=== PATIENT | female | born 1990 | race Caucasian/White ===

== ENCOUNTER 2016-07-19 22:23 | Emergency (ER) | payer MEDICAID ==
[2016-07-19 23:45] LABS: ABSOLUTE BASOPHILS # (AUTO) 0.2 10^3/uL (0.0-0.2); ABSOLUTE EOSINOPHILS # (AUTO) 0.4 10^3/uL (0.0-0.6); ABSOLUTE LYMPHOCYTES (AUTO) 3.5 10^3/uL (0.5-4.7); ABSOLUTE MONOCYTES (AUTO) 0.6 10^3/uL (0.1-1.4); ABSOLUTE NEUT (AUTO) 7.1 10^3/uL (1.7-8.2); BASOPHILS % (AUTO) 1.4 % (0-2); EOSINOPHILS % (AUTO) 3.1 % (0-6); LYMPHOCYTES % (AUTO) 29.6 % (13-45); MEAN CORPUSCULAR HEMOGLOBIN 31.2 pg (27.0-33.4); MEAN CORPUSCULAR HGB CONC 34.3 g/dL (32.0-36.0); MEAN CORPUSCULAR VOLUME 91 fl (80-97); MONOCYTES % (AUTO) 5.2 % (3-13); RED BLOOD COUNT 4.17 10^6/uL (3.72-5.28); RED CELL DISTRIBUTION WIDTH 13.5 % (11.5-14.0); SEGMENTED NEUTROPHILS % (AUTO) 60.7 % (42-78); WHITE BLOOD COUNT 11.8 10^3/uL (4.0-10.5)
[2016-07-19 23:53] LABS: APPEARANCE,URINE SLIGHTLY-CLOUDY; BILIRUBIN,URINE NEGATIVE (NEGATIVE); GLUCOSE, URINE NEGATIVE (NEGATIVE); KETONES,URINE NEGATIVE (NEGATIVE); LEUKOCYTE ESTERASE,URINE TRACE (NEGATIVE); NITRITE,URINE NEGATIVE (NEGATIVE); PROTEIN,URINE NEGATIVE (NEGATIVE); UROBILINOGEN,URINE NEGATIVE mg/dL (<2.0)
[2016-07-20 00:03] LABS: ALANINE AMINOTRANSFERASE 47 U/L (9-52); ALBUMIN 4.4 g/dL (3.5-5.0); ALKALINE PHOSPHATASE 75 U/L (38-126); ANION GAP 13 (5-19); ASPARTATE AMINO TRANSFERASE 26 U/L (14-36); BILIRUBIN,DIRECT 0.2 mg/dL (0.0-0.4); BILIRUBIN,TOTAL 0.3 mg/dL (0.2-1.3); BLOOD UREA NITROGEN 11 mg/dL (7-20); CALCIUM 10.6 mg/dL (8.4-10.2); CARBON DIOXIDE 28 mmol/L (22-30); CHLORIDE 102 mmol/L (98-107); CREATININE RESULT 0.69 mg/dL (0.52-1.25); GLUCOSE 83 mg/dL (75-110); LIPASE 78.3 U/L (23-300); SODIUM 142.9 mmol/L (137-145); TOTAL PROTEIN 7.3 g/dL (6.3-8.2)
--- NOTE | 2016-07-20 00:09 | ER Document Report ---
ED General - General Chief Complaint: Abdominal Pain Stated Complaint: STOMACH PAIN Time Seen by Provider: 07/20/16 00:02 Notes: Patient is a 26-year-old female presents for complaint of having sharp pains in her pelvic area and lower abdomen. She's had heavy periods. Sometimes having clots with her periods. periods are not regular. She says the pain has been gradually worsening over a year. She's not seeing sprayer machine about the pain. She has no vomiting. No diarrhea. No fevers. Over the last few days she's had some increase abnormal discharge. They should says she can have her pain at any time in her cycle. TRAVEL OUTSIDE OF THE [place] IN LAST 30 DAYS: No - Related Data Allergies/Adverse Reactions: No Known Allergies Allergy (Verified 06/24/14 07:16) Past Medical History - Social History Smoking Status: Unknown if Ever Smoked Frequency of alcohol use: None Drug Abuse: None Family History: Reviewed & Not Pertinent Patient has suicidal ideation: No Patient has homicidal ideation: No - Past Medical History Cardiac Medical History: Denies: Hx Coronary Artery Disease, Hx Heart Attack, Hx Hypertension Pulmonary Medical History: Denies: Hx Asthma, Hx Bronchitis, Hx COPD, Hx Pneumonia Neurological Medical History: Denies: Hx Cerebrovascular Accident, Hx Seizures Renal/ Medical History: Denies: Hx Peritoneal Dialysis Musculoskeltal Medical History: Denies Hx Arthritis, Reports Hx Musculoskeletal Trauma Psychiatric Medical History: Reports: Hx Anxiety, Hx Depression Traumatic Medical History: Reports: Hx Fractures Past Surgical History: Reports: Hx Orthopedic Surgery - right foot - Immunizations Immunizations up to date: Yes Hx Diphtheria, Pertussis, Tetanus Vaccination: Yes Review of Systems - Review of Systems Notes: My Normal Review Basic REVIEW OF SYSTEMS: CONSTITUTIONAL : Denies fever, chills, or sweats. Denies recent illness. RESPIRATORY: Denies cough, cold, or chest congestion. Denies shortness of breath, difficulty breathing, or wheezing. GASTROINTESTINAL: Lower abdominal pain. Denies nausea, vomiting, or diarrhea. Denies constipation. Last BM: GENITOURINARY: Denies difficulty urinating, painful urination, burning, frequency, or blood in urine. FEMALE GENITOURINARY: Abnormal vaginal discharge. MUSCULOSKELETAL: Denies neck or back pain or joint pain or swelling. SKIN: Denies rash or skin lesions. NEUROLOGICAL: Denies altered mental status or loss of consciousness. Denies headache. Denies weakness or paralysis or loss of use of either side. Denies problems with gait or speech. Denies sensory or motor loss. ALL OTHER SYSTEMS REVIEWED AND NEGATIVE. Physical Exam - Vital signs Vitals: Temp Pulse Resp BP Pulse Ox 98.2 F 73 18 129/67 H 98 07/19/16 23:09 07/19/16 23:09 07/19/16 23:09 07/19/16 23:09 07/19/16 23:09 - Notes Notes: General Appearance: Well nourished, alert, cooperative, no acute distress, no obvious discomfort. Well-appearing. Vitals: reviewed, See vital signs table. Head: no swelling or tenderness to the head Eyes: PERRL, EOMI, Conjuctiva clear Mouth: No decreasd moisture Lungs: No wheezing, No rales, No rhonci, No accessory muscle use, good air exchange bilaterally. Heart: Normal rate, Regular rythm, No murmur, no rub Abdomen: Normal BS, soft, No rigidity, mild lower abdominal tenderness to palpation, No guarding, no rebound, no abdominal masses, no organomegaly Pelvic exam: Normal external genitalia. Clear vaginal discharge. No blood in vaginal vault. No pain on exam. Extremities: strength 5/5 in all extremities, good pulses in all extremities, no swelling or tenderness in the extremities, no edema. Skin: warm, dry, appropriate color, no rash Neuro: speech clear, oriented x 3, normal affect, responds appropriately to questions. Course - Vital Signs Vital signs: Temp Pulse Resp BP Pulse Ox 97.7 F 67 17 115/78 99 07/20/16 02:08 07/20/16 02:57 07/20/16 02:57 07/20/16 02:57 07/20/16 02:57 - Laboratory Result Diagrams: 07/19/16 23:35 07/19/16 23:35 Laboratory results interpreted by me: 07/19/16 07/19/16 07/19/16 23:00 23:35 23:35 WBC 11.8 H Calcium 10.6 H Urine Blood MODERATE H Ur Leukocyte Esterase TRACE H - Transfer of Care Notes: 07/20/16 05:47 Patient has been having pelvic pain is now for a year. Recently there a little bit worse but she's also had some discharge. She had mostly clear discharge on exam. She does have white blood cells on wet prep. I will treat her for bacterial vaginosis. I did swab her for gonorrhea and chlamydia. If these are positive we will call her back and call her in a prescription for treatment. I will refer her to gynecology due to her chronic pelvic pain. Pain could be related to endometriosis. Patient says that the pain does occur throughout her cycle however it does seem to be worse during her menstrual periods. Patient encouraged return to ER shows fevers, worsening pain, or heavy bleeding. Patient agrees with plan will be discharged home. Dictation of this chart was performed using voice recognition software; therefore, there may be some unintended grammatical errors. Discharge - Discharge Clinical Impression: Pelvic pain, Bacterial vaginosis Condition: Good Disposition: HOME, SELF-CARE Additional Instructions: Your ultrasound did not show any concerning abnormalities. Her pain could be potentially coming from endometriosis. Please follow-up with the sprayer machine for evaluation to see what their thoughts are on the possible causes of your recurrent pelvic pain. Your vaginal swabs did show evidence of white blood cells and you did have some discharge. We will treat you for bacterial vaginosis. Your gonorrhea and chlamydia swabs are pending. If they're positive we will call you. This typically takes 1-2 days. Prescriptions: Metronidazole [Flagyl 500 mg Tablet] 500 mg PO BID #14 tablet Forms: Return to Work Referrals: CHARLEEN SWANSON MD [ACTIVE STAFF] - Follow up in 3-5 days
[2016-07-20 02:48] LABS: CHLAM PCR NOT DETECTED (NOT DETECT)
[2016-07-20 02:58] VITALS: BP 115/78
== END 2016-07-20 02:58 | disposition home or self-care (01) ==
LOC: ER 22:23
DX: N76.0 Acute vaginitis (principal); B96.89 Other specified bacterial agents as the cause of diseases classified elsewhere; R10.2 Pelvic and perineal pain; G89.29 Other chronic pain; N92.6 Irregular menstruation, unspecified
CPT/HCPCS: 36415; 76830; 80053; 81001; 83690; 85025; 87210; 87491; 87591; 93976; 99284

== ENCOUNTER 2016-08-19 15:42 | Emergency (ER) | payer MEDICAID ==
--- NOTE | 2016-08-19 17:03 | ER Document Report ---
ED Skin Rash/Insect Bite/Abscs - General Chief Complaint: Rash Stated Complaint: RASH Time Seen by Provider: 08/19/16 16:50 Mode of Arrival: Ambulatory Information source: Patient Notes: This is a 31-year-old female who presents with a dry itchy rash to her hands. She states that this hand irritation has been present for about 6 months. She does not have a physician and so she has not sought medical care for this issue. TRAVEL OUTSIDE OF THE [place] IN LAST 30 DAYS: No - Related Data Allergies/Adverse Reactions: No Known Allergies Allergy (Verified 08/19/16 15:44) Past Medical History - General Information source: Patient, [facility] Records - Social History Smoking Status: Unknown if Ever Smoked Family History: Reviewed & Not Pertinent Patient has suicidal ideation: No Patient has homicidal ideation: No - Past Medical History Cardiac Medical History: Denies: Hx Coronary Artery Disease, Hx Heart Attack, Hx Hypertension Pulmonary Medical History: Denies: Hx Asthma, Hx Bronchitis, Hx COPD, Hx Pneumonia Neurological Medical History: Denies: Hx Cerebrovascular Accident, Hx Seizures Renal/ Medical History: Denies: Hx Peritoneal Dialysis Musculoskeltal Medical History: Denies Hx Arthritis, Reports Hx Musculoskeletal Trauma Psychiatric Medical History: Reports: Hx Anxiety, Hx Depression Traumatic Medical History: Reports: Hx Fractures Past Surgical History: Reports: Hx Orthopedic Surgery - right foot - Immunizations Immunizations up to date: Yes Hx Diphtheria, Pertussis, Tetanus Vaccination: Yes Review of Systems - Review of Systems Constitutional: No symptoms reported. denies: Chills, Fever EENT: No symptoms reported Cardiovascular: No symptoms reported Respiratory: No symptoms reported Gastrointestinal: No symptoms reported Musculoskeletal: No symptoms reported Skin: See HPI Hematologic/Lymphatic: No symptoms reported Neurological/Psychological: No symptoms reported Physical Exam - Vital signs Vitals: Temp Pulse Resp BP Pulse Ox 97.5 F 114 H 20 132/74 H 98 08/19/16 15:44 08/19/16 15:44 08/19/16 15:44 08/19/16 15:44 08/19/16 15:44 - General General appearance: Appears well In distress: None - HEENT Head: Normocephalic, Atraumatic Eyes: Normal - Cardiovascular Rhythm: Regular Heart sounds: Normal auscultation, S1 appreciated, S2 appreciated - Skin Skin Temperature: Warm Skin Moisture: Dry Notes: dry, scaly skin to bilateral palms fingers/web spaces. Consistent with hand eczema/dermatitis. No maculopapular lesions. Cap refill intact. Sensation intact. FROM to digits. Course - Vital Signs Vital signs: Temp Pulse Resp BP Pulse Ox 97.5 F 114 H 20 132/74 H 98 08/19/16 15:44 08/19/16 15:44 08/19/16 15:44 08/19/16 15:44 08/19/16 15:44 Discharge - Discharge Clinical Impression: Hand eczema Condition: Stable Disposition: HOME, SELF-CARE Additional Instructions: Your rash is consistent with hand eczema. Avoid alcohol based soaps or hand sanitizers. Use topical steroid cream as prescribed. OTC benadryl can help with the itching, as discussed. Follow up with PCP or [facility] as instructed Prescriptions: Triamcinolone Acetonide 15 gm TP TID #1 cream.gm.
[2016-08-19] MEDS ORDERED: DIPHENHYDRAMINE HCL 50 MG CAPSULE PO ONE (17:20)
[2016-08-19] MEDS ORDERED: PREDNISONE 20 MG TABLET PO ONE (17:20)
--- NOTE | 2016-08-19 17:20 | ER Document Report ---
ED Skin Rash/Insect Bite/Abscs - General Mode of Arrival: Ambulatory Information source: Patient TRAVEL OUTSIDE OF THE [place] IN LAST 30 DAYS: No - HPI Patient complains to provider of: Other - rash Skin Character: Other - See above <ELIAN CRESPO - Last Filed: 08/19/16 18:15> <SHELBY AVILA - Last Filed: 08/19/16 19:13> - General Chief Complaint: Rash Stated Complaint: RASH Time Seen by Provider: 08/19/16 16:50 Notes: Patient is a 26 year old female who presents to the emergency department complaining of a rash. Patient states she woke up with and rash and what look like bites on her upper arms, groin, knees, and swelling of her hands. Patient states the bites itch and that her hands are painful. Patient reports that she woke up 2 months ago with a similar rash that were itchy. (ELIAN CRESPO) - Related Data Allergies/Adverse Reactions: No Known Allergies Allergy (Verified 08/19/16 15:44) Past Medical History - General Information source: Patient - Social History Smoking Status: Unknown if Ever Smoked Family History: Reviewed & Not Pertinent Patient has suicidal ideation: No Patient has homicidal ideation: No Musculoskeltal Medical History: Reports Hx Musculoskeletal Trauma Psychiatric Medical History: Reports: Hx Anxiety, Hx Depression Traumatic Medical History: Reports: Hx Fractures Past Surgical History: Reports: Hx Orthopedic Surgery - right foot - Immunizations Immunizations up to date: Yes Hx Diphtheria, Pertussis, Tetanus Vaccination: Yes <ELIAN CRESPO - Last Filed: 08/19/16 18:15> Review of Systems - Review of Systems Constitutional: No symptoms reported EENT: No symptoms reported Cardiovascular: No symptoms reported Respiratory: No symptoms reported Gastrointestinal: No symptoms reported Genitourinary: No symptoms reported Female Genitourinary: No symptoms reported Musculoskeletal: See HPI, Other - hand swelling Skin: See HPI, Rash Hematologic/Lymphatic: No symptoms reported Neurological/Psychological: No symptoms reported -: Yes All other systems reviewed and negative <ELIAN CRESPO - Last Filed: 08/19/16 18:15> Physical Exam - Vital signs Interpretation: Tachycardic - General General appearance: Appears well, Alert - HEENT Head: Normocephalic, Atraumatic Eyes: Normal Pupils: PERRL - Respiratory Respiratory status: No respiratory distress Chest status: Nontender Breath sounds: Normal Chest palpation: Normal - Cardiovascular Rhythm: Regular Heart sounds: Normal auscultation Murmur: No - Abdominal Inspection: Normal Distension: No distension Bowel sounds: Normal Tenderness: Nontender Organomegaly: No organomegaly - Back Back: Normal, Nontender - Extremities General upper extremity: Normal inspection, Nontender, Normal color, Normal ROM , Normal temperature General lower extremity: Normal inspection, Nontender, Normal color, Normal ROM , Normal temperature, Normal weight bearing. No: Luisa's sign - Neurological Neuro grossly intact: Yes Cognition: Normal Orientation: AAOx4 [place] Coma Scale Eye Opening: Spontaneous [place] Coma Scale Verbal: Oriented [place] Coma Scale Motor: Obeys Commands [place] Coma Scale Total: 15 Speech: Normal Motor strength normal: LUE, RUE, LLE, RLE Sensory: Normal - Psychological Associated symptoms: Normal affect, Normal mood - Skin Skin Temperature: Warm Skin Moisture: Dry Skin Color: Normal Character of irregularity: Urticarial - bl upper and lower extremities, worse on hands <SHELBY AVILA - Last Filed: 08/19/16 19:13> - Vital signs Vitals: Temp Pulse Resp BP Pulse Ox 97.5 F 114 H 20 132/74 H 98 08/19/16 15:44 08/19/16 15:44 08/19/16 15:44 08/19/16 15:44 08/19/16 15:44 Course <ELIAN CRESPO - Last Filed: 08/19/16 18:15> <SHELBY AVILA - Last Filed: 08/19/16 19:13> - Re-evaluation Re-evalutation: 08/19/16 17:12 Is a 26-year-old female who comes in with rash that is worse on her upper extremities. Patient states that it itches. [place] the [place] Patient has urticaria. Possible sand flea bites and allergic reaction to them. Patient's symptoms are worse on her hands. Patient was asked to remove her rings because of swelling. Patient has excoriations around the areas. Symptoms are consistent with urticaria, again likely with a insect envenomation. Patient will be given prednisone and is to take Benadryl and famotidine at home. Follow-up with PMD as needed. Return if any worsening or concerning symptoms. Stable for discharge. Patient understands and agrees with plan. Grateful for care. (SHELBY AVILA) - Vital Signs Vital signs: Temp Pulse Resp BP Pulse Ox 97.2 F 80 16 127/82 H 97 08/19/16 17:39 08/19/16 17:39 08/19/16 17:39 08/19/16 17:39 08/19/16 17:39 Discharge <ELIAN CRESPO - Last Filed: 08/19/16 18:15> <SHELBY AVILA - Last Filed: 08/19/16 19:13> - Discharge Clinical Impression: Urticaria Condition: Stable Disposition: HOME, SELF-CARE Instructions: Acute Urticaria ([facility]) Prescriptions: Cetirizine HCl [Zyrtec 10 mg Tablet] 1 tab PO DAILY #30 tablet Prednisone 40 mg PO DAILY #6 tablet Scribe Attestation: 08/19/16 19:13 I personally performed the services described in the documentation, reviewed and edited the documentation which was dictated to the scribe in my presence, and it accurately records my words and actions. (SHELBY AVILA)
[2016-08-19 17:39] VITALS: BP 127/82
== END 2016-08-19 17:40 | disposition home or self-care (01) ==
LOC: ER 15:42
DX: L50.9 Urticaria, unspecified (principal)
CPT/HCPCS: 99282; J3490; J7512

== ENCOUNTER 2017-06-19 14:18 | Emergency (ER) | payer MEDICAID, OTHER ==
[2017-06-19] MEDS ORDERED: IBUPROFEN 800 MG TABLET PO ONE (15:04)
[2017-06-19] MEDS ORDERED: HYDROCODONE/ACETAMINOPHEN 5-325 MG TABLET PO ONE (15:05)
--- NOTE | 2017-06-19 15:10 | ER Document Report ---
HPI - HPI Patient complains to provider of: Right ankle pain Onset: Other - 2 months Onset/Duration: Persistent Quality of pain: Achy Pain Level: 3 Context: Patient presents complaining of right ankle pain for the past 2 months that has worsened recently. Patient states she did fracture the ankle in 2007. Patient states she has noticed that she has been limping more recently. Patient denies any new injury. Associated Symptoms: Other - Right ankle pain. denies: Fever Exacerbated by: Standing, Movement, Walking Relieved by: Denies Similar symptoms previously: Yes Recently seen / treated by doctor: No - ROS ROS below otherwise negative: Yes Systems Reviewed and Negative: Yes All other systems reviewed and negative - CONSTITUTIONAL Constitutional: DENIES: Fever - REPRODUCTIVE Reproductive: DENIES: : - MUSCULOSKELETAL Musculoskeletal: REPORTS: Extremity pain, Swelling - DERM Skin Color: Normal Skin Problems: None Past Medical History - General Information source: Patient - Social History Smoking Status: Current Every Day Smoker Smoking Education Provided: Yes Frequency of alcohol use: Occasional Drug Abuse: None Occupation: [employer] Family History: Reviewed & Not Pertinent - Medical History Medical History: Negative Neurological Medical History: Denies: Hx Cerebrovascular Accident, Hx Seizures Renal/ Medical History: Denies: Hx Peritoneal Dialysis Musculoskeltal Medical History: Denies Hx Arthritis, Reports Hx Musculoskeletal Trauma Psychiatric Medical History: Reports: Hx Anxiety, Hx Depression Traumatic Medical History: Reports: Hx Fractures Past Surgical History: Reports: Hx Orthopedic Surgery - right foot - Immunizations Immunizations up to date: Yes Hx Diphtheria, Pertussis, Tetanus Vaccination: Yes Vertical Provider Document - CONSTITUTIONAL Agree With Documented VS: Yes Exam Limitations: No Limitations General Appearance: WD/WN, No Apparent Distress - INFECTION CONTROL TRAVEL OUTSIDE OF THE [place] IN LAST 30 DAYS: No - HEENT HEENT: Atraumatic, Normocephalic - NECK Neck: Normal Inspection - RESPIRATORY Respiratory: No Respiratory Distress - CARDIOVASCULAR Pulses: Normal: Dorsalis pedis - MUSCULOSKELETAL/EXTREMETIES Musculoskeletal/Extremeties: MAEW, Tender - right ankle tenderness to medial and posterior ankle - NEURO Level of Consciousness: Awake, Alert, Appropriate Motor/Sensory: No Motor Deficit - DERM Integumentary: Warm, Dry, No Rash Course - Vital Signs Vital signs: Temp Pulse Resp BP Pulse Ox 98.0 F 71 20 131/74 H 98 06/19/17 14:39 06/19/17 14:39 06/19/17 14:39 06/19/17 14:39 06/19/17 14:39 - Diagnostic Test Radiology reviewed: Image reviewed, Reports reviewed Procedures - Immobilization Right Ankle Pre-Proc Neuro Vasc Exam: Normal Immobilizer type: Ankle stirrup Performed by: PCT Post-Proc Neuro Vasc Exam: Normal Alignment checked and good: Yes Discharge - Discharge Clinical Impression: Right ankle pain Qualifiers: Chronicity: unspecified Qualified Code(s): M25.571 - Pain in right ankle and joints of right foot Arthritic-like pain Qualifiers: Joint pain location: ankle Laterality: right Qualified Code(s): M25.571 - Pain in right ankle and joints of right foot Condition: Stable Disposition: HOME, SELF-CARE Instructions: Ankle Stirrup Splint ([facility]), Anti-Inflammatory Medication ([facility]), Arthritis ([facility]), Use of Crutches ([facility]) Additional Instructions: Return immediately for any new or worsening symptoms Followup with your primary care provider, call tomorrow to make a followup appointment Follow-up with tax specialist for further evaluation, weightbearing as tolerated Prescriptions: Naproxen [Naprosyn 250 Nmg Tablet] 1 tab PO BID #14 tablet Tramadol HCl [Ultram 50 mg Tablet] 50 mg PO ASDIR PRN #12 tablet PRN Reason: Forms: Smoking Cessation Education, Return to Work Referrals: SHANNON SANCHEZ MD [Primary Care Provider] - Follow up as needed [facility] [Provider [facility]] - Follow up in 3-5 days
--- NOTE | 2017-06-19 15:20 | RADIOLOGY REPORT (SQ) ---
EXAM DESCRIPTION: ANKLE RIGHT COMPLETE COMPLETED DATE/TIME: 06/19/2017 3:05 pm REASON FOR STUDY: pain, prev surgery COMPARISON: Right foot three views 05/31/2013 NUMBER OF VIEWS: Three views. TECHNIQUE: AP, lateral, and oblique radiographic images acquired of the right ankle. LIMITATIONS: None. FINDINGS: MINERALIZATION: Normal. BONES: No acute fracture or dislocation. Old well corticated avulsion fragments off the medial malle olus. Radio surgery along the talus, with 3 screws present at the talar neck. No lucency around the hardwa re worrisome for loosening. JOINTS: No tibiotalar joint effusion. No disruption of the ankle mortise alignment. Mild bony spurr ing along the posterior aspect of the posterior subtalar joint, and at the talonavicular joint. SOFT TISSUES: No soft tissue swelling. No foreign body. OTHER: No other significant finding. IMPRESSION: No acute findings. Old surgery with screws along the talus. Old avulsion fragments medial malleolus, well corticated and chronic in appearance Bony spurring at the posterior subtalar joint and talonavicular joint TECHNICAL DOCUMENTATION: JOB ID: [id number] [employer]- All Rights Reserved Reading location - IP/workstation name: [email or web address]
[2017-06-19 16:54] VITALS: BP 115/62
== END 2017-06-19 16:56 | disposition home or self-care (01) ==
LOC: ER 14:18
DX: M25.571 Pain in right ankle and joints of right foot (principal)
CPT/HCPCS: 99283; 73610; L4350

== ENCOUNTER 2017-07-25 06:35 | Day surgery (SDC) | payer MEDICAID, OTHER ==
[2017-07-18 11:20] LABS: HEMATOCRIT 39.4 % (36.0-47.0); HEMOGLOBIN 13.9 g/dL (12.0-15.5); MEAN CORPUSCULAR HEMOGLOBIN 32.3 pg (27.0-33.4); MEAN CORPUSCULAR HGB CONC 35.2 g/dL (32.0-36.0); MEAN CORPUSCULAR VOLUME 92 fl (80-97); PLATELET COUNT 277 10^3/uL (150-450); RED BLOOD COUNT 4.29 10^6/uL (3.72-5.28); RED CELL DISTRIBUTION WIDTH 12.9 % (11.5-14.0); WHITE BLOOD COUNT 11.5 10^3/uL (4.0-10.5)
[2017-07-18 11:48] LABS: ANION GAP 11 (5-19); BLOOD UREA NITROGEN 10 mg/dL (7-20); CALCIUM 10.7 mg/dL (8.4-10.2); CARBON DIOXIDE 29 mmol/L (22-30); CHLORIDE 103 mmol/L (98-107); GLUCOSE 110 mg/dL (75-110); POTASSIUM 4.6 mmol/L (3.6-5.0); SODIUM 143.1 mmol/L (137-145)
[2017-07-18 11:51] LABS: APPEARANCE,URINE SLIGHTLY-CLOUDY; BILIRUBIN,URINE NEGATIVE (NEGATIVE); COLOR,URINE YELLOW; GLUCOSE, URINE NEGATIVE (NEGATIVE); KETONES,URINE NEGATIVE (NEGATIVE); LEUKOCYTE ESTERASE,URINE MODERATE (NEGATIVE); NITRITE,URINE NEGATIVE (NEGATIVE); PROTEIN,URINE NEGATIVE (NEGATIVE); URINE SPECIFIC GRAVITY 1.027; UROBILINOGEN,URINE NEGATIVE mg/dL (<2.0)
[~2017-07-25 06:35] MED LIST: CEFAZOLIN SODIUM 2 GM in DEXTROSE 5%-WATER 100 ML IV PRN; LACTATED RINGERS 1000 ML IV PRN; LIDOCAINE 0.5% INJ-PF (5 MG/ML) 50 ML SDV SUBCUT PRN
[2017-07-25] MEDS ORDERED: BUPIVACAINE HCL 0.5 % INJ/PF 30 ML SDV ONE (07:13)
[2017-07-25] MEDS ORDERED: MIDAZOLAM 2 MG/2 ML INJ ONE ×2 (07:46→08:10)
[2017-07-25] MEDS ORDERED: HYDROMORPHONE HCL INJ/PF 2 MG/ML AMPULE ONE (08:09)
[2017-07-25] MEDS ORDERED: FENTANYL CITRATE INJ/PF 250 MCG/5 ML AMPULE ONE (08:09)
[2017-07-25] MEDS ORDERED: ACETAMINOPHEN 100 ML IV ONE (08:10)
[2017-07-25] MEDS ORDERED: PROPOFOL INJ 200 MG/20 ML VIAL IV ONE (08:10)
[2017-07-25] MEDS ORDERED: EPHEDRINE SULFATE INJ 50 MG/1 ML AMPULE ONE (08:51)
[2017-07-25] MEDS ORDERED: MORPHINE SULFATE 10 MG/ML INJ IV PRN (08:59)
[2017-07-25] MEDS ORDERED: OXYCODONE-ACETAMINOPHEN 5-325 MG TABLET PO PRN ×2 (08:59)
[2017-07-25] MEDS ORDERED: DIPHENHYDRAMINE HCL 50 MG/ML VIAL IV PRN (08:59)
[2017-07-25] MEDS ORDERED: PROMETHAZINE HCL INJ 25 MG/1 ML VIAL IV PRN ×2 (08:59)
[2017-07-25] MEDS ORDERED: MEPERIDINE HCL/PF INJ 25 MG/1 ML DISP.SYRIN IV PRN (08:59)
[2017-07-25] MEDS ORDERED: FENTANYL CITRATE INJ/PF 100 MCG/2 ML AMPUL IV PRN ×3 (08:59)
--- NOTE | 2017-07-25 09:40 | Operative Report ---
Operative Report DATE OF SURGERY: 07/25/17 PREOPERATIVE DIAGNOSIS: Right subtalar arthritis, posttraumatic OPERATION: Right subtalar fusion. Talar neck osteoectomy SURGEON: SOLO ORTEGA ANESTHESIA: GA ESTIMATED BLOOD LOSS: Minimal PROCEDURE: With the patient in a sloppy lateral position on the operating table the right lower extremities prepped and draped in sterile fashion. Limb was elevated for exsanguination tourniquet inflated 280 torr. Using a previous approach the sinus tarsi oblique incision is made. Sharp dissection used to carry incision down to the subtalar joint. Subtalar joint is explored. Its opened using a lamina public relations analyst. The subtalar joint is decorticated using a bur. Subsequently 2 pins for a [place] 6.5 titanium screw set are placed through the calcaneus up into the talar neck. The screws are started along the pin tracts. The subtalar joint is then packed with V toss bone graft substitute. The remaining screw depth is inserted. The position and hardware placement are checked fluoroscopically. The tourniquet is then deflated. The wound is irrigated. Hemostasis obtained with electrocautery. Wound is closed in layers with interrupted Vicryl followed by nylon. Sterile compressive dressing and posterior plaster splint were applied. The patient's return to the PACU in satisfactory condition.
[2017-07-25] MEDS: FENTANYL CITRATE INJ/PF 100 MCG/2 ML AMPUL ONE ×2 (09:53→10:03)
[2017-07-25] MEDS ORDERED: OXYCODONE HCL IR 5 MG TABLET PO PRN (09:56)
[2017-07-25] MEDS ORDERED: ONDANSETRON 4 MG TAB.RAPDIS PO PRN (09:57)
[2017-07-25] MEDS ORDERED: PROMETHAZINE HCL INJ 25 MG/1 ML VIAL ONE (10:03)
[2017-07-25] MEDS: MORPHINE SULFATE 10 MG/ML INJ ONE ×2 (10:10→10:15)
[2017-07-25] MEDS ORDERED: DIPHENHYDRAMINE HCL 50 MG/ML VIAL ONE (10:48)
[2017-07-25] MEDS ORDERED: DEXAMETHASONE SOD PHOSPHATE INJ 4 MG/1 ML VIAL ONE (11:45)
[2017-07-25] MEDS ORDERED: SUCCINYLCHOLINE CHLORIDE INJ 200 MG/10 ML VIAL ONE (11:45)
[2017-07-25] MEDS ORDERED: ONDANSETRON HCL INJ/PF 4 MG/2 ML SDV ONE (11:45)
--- NOTE | 2017-07-25 12:10 | RADIOLOGY REPORT (SQ) ---
EXAM DESCRIPTION: NO CHG FLUORO; ANKLE RIGHT COMPLETE COMPLETED DATE/TIME: 07/25/2017 10:45 am REASON FOR STUDY: RT ANKLE/TALUS FUSION ASST WITH FLUOROSCOPY IN OR COMPARISON: 06/19/2017 radiographs. FINDINGS: 4 images obtained of the ankle and hindfoot show further instrumentation, screws across th e subtalar articulation. Fluoro time 0.3 minutes. TECHNICAL DOCUMENTATION: JOB ID: [id number] Reading location - IP/workstation name: [email or web address]
--- NOTE | 2017-07-25 12:10 | RADIOLOGY REPORT (SQ) ---
EXAM DESCRIPTION: NO CHG FLUORO; ANKLE RIGHT COMPLETE COMPLETED DATE/TIME: 07/25/2017 10:45 am REASON FOR STUDY: RT ANKLE/TALUS FUSION ASST WITH FLUOROSCOPY IN OR COMPARISON: 06/19/2017 radiographs. FINDINGS: 4 images obtained of the ankle and hindfoot show further instrumentation, screws across th e subtalar articulation. Fluoro time 0.3 minutes. TECHNICAL DOCUMENTATION: JOB ID: [id number] Reading location - IP/workstation name: [email or web address]
[2017-07-25 12:11] VITALS: BP 108/79
== END 2017-07-25 12:10 | disposition home or self-care (01) ==
LOC: OROUT 06:35
PROVIDERS: ATTEND Orthopaedic Surgery
DX: M19.171 Post-traumatic osteoarthritis, right ankle and foot (principal); S92.121 Displaced fracture of body of right talus; X58.XXXS Exposure to other specified factors, sequela; M25.571 Pain in right ankle and joints of right foot; F17.210 Nicotine dependence, cigarettes, uncomplicated; Z01.818 Encounter for other preprocedural examination; M79.671 Pain in right foot; E66.9 Obesity, unspecified; Z68.41 Body mass index [BMI] 40.0-44.9, adult
CPT/HCPCS: 36415; 85027; 81025; 80048; 81001; 73610; 28725; 28118; C1898; J2250; J3490 ×2; J0690; J1100; J3010 ×2; J2270; J1170; J2550; J0330; J2405; J2704; J0131; 01480; J1200

== ENCOUNTER 2017-07-31 01:37 | Emergency (ER) | payer OTHER ==
--- NOTE | 2017-07-31 03:18 | ER Document Report ---
ED General - General Chief Complaint: Leg Pain Stated Complaint: NUMBESS IN LEG Time Seen by Provider: 07/31/17 03:17 Mode of Arrival: Ambulatory Information source: Patient Notes: 27-year-old lady with past medical history of right ankle injury with associated arthritis who had right subtalar fusion by Dr. Ortega orthopedics on 25 July who presented today for evaluation of right foot numbness. Numbness localized to the right foot, no radiation, no associated calf pain. Patient denies any chest pain or shortness of breath. Patient has cast on her right foot. TRAVEL OUTSIDE OF THE [place] IN LAST 30 DAYS: No - Related Data Allergies/Adverse Reactions: No Known Allergies Allergy (Verified 07/18/17 10:19) Past Medical History - General Information source: Patient - Social History Smoking Status: Current Every Day Smoker Chew tobacco use (# tins/day): No Frequency of alcohol use: None Drug Abuse: None Family History: Reviewed & Not Pertinent Patient has suicidal ideation: No Patient has homicidal ideation: No - Past Medical History Cardiac Medical History: Denies: Hx Coronary Artery Disease, Hx Heart Attack, Hx Hypertension Pulmonary Medical History: Denies: Hx Asthma, Hx Bronchitis, Hx COPD, Hx Pneumonia Neurological Medical History: Denies: Hx Cerebrovascular Accident, Hx Seizures Renal/ Medical History: Denies: Hx Peritoneal Dialysis Musculoskeltal Medical History: Denies Hx Arthritis, Reports Hx Musculoskeletal Trauma Psychiatric Medical History: Reports: Hx Anxiety, Hx Depression Traumatic Medical History: Reports: Hx Fractures Past Surgical History: Reports: Hx Orthopedic Surgery - right foot - Immunizations Immunizations up to date: Yes Hx Diphtheria, Pertussis, Tetanus Vaccination: Yes - UNSURE WHEN Review of Systems - Review of Systems Notes: REVIEW OF SYSTEMS: CONSTITUTIONAL: -fevers, -chills EENT: -eye pain, -difficulty swallowing, -nasal congestion CARDIOVASCULAR: -chest pain, -syncope. RESPIRATORY: -cough, -SOB GASTROINTESTINAL: -abdominal pain, -nausea, -vomiting, -diarrhea GENITOURINARY: -dysuria, -hematuria MUSCULOSKELETAL: -back pain, -neck pain SKIN: -rash or skin lesions. HEMATOLOGIC: -easy bruising or bleeding. LYMPHATIC: -swollen, enlarged glands. NEUROLOGICAL: -altered mental status or loss of consciousness, -headache, + paresthesias of the foot PSYCHIATRIC: -anxiety, -depression. ALL OTHER SYSTEMS REVIEWED AND NEGATIVE. Physical Exam - Vital signs Vitals: Temp Pulse Resp BP Pulse Ox 98.9 F 116 H 20 118/65 99 07/31/17 01:44 07/31/17 01:44 07/31/17 01:44 07/31/17 01:44 07/31/17 01:44 - Notes Notes: Reviewed vital signs and nursing note as charted by RN. CONSTITUTIONAL: Alert and oriented and responds appropriately to questions HEAD: Normocephalic; atraumatic EYES: PERRL; ENT: normal NECK: Supple CARD: Regular rate and rhythm; no murmurs, no clicks, no rubs, no gallops; symmetric distal pulses RESP: Normal chest excursion without splinting or tachypnea; breath sounds clear and equal bilaterally ABD/GI: Normal bowel sounds; non-distended; soft, nontender BACK: The back appears normal and is non-tender to palpation EXT: Right foot examination after removal of the cast appears to be swollen, patient has postsurgical scar localized to the lateral aspect of the ankle, no purulence, no associated cellulitis, patient has no tenderness of the calf, her paresthesias improved after removal of the cast, DP and PT palpable, good perfusion, sensation with mild paresthesias SKIN: Normal color for age and race; warm; dry; good turgor; capillary refill < 2 seconds; no acute lesions noted NEURO: Cranial nerves 3-12 intact. Motor strength 5/5 bilaterally. Sensation intact to touch bilaterally PSYCH: The patient's mood and manner are appropriate. Grooming and personal hygiene are appropriate. Course - Re-evaluation Re-evalutation: Patient is here for evaluation of right ankle paresthesias Patient had recent surgery with still associated edema Examination did not reveal any evidence of cellulitis or purulence, surgical incision appears well Patient felt better after removal of the splint We will obtain x-rays Consult orthopedics 07/31/17 05:55 Discussed the case with orthopedic surgeon on-call, Dr. Pedro Goldstein He agreed that her numbness can be related due to neuropraxia secondary to recent surgery as well as edema Recommended splinting back into her post mold as well as sugar tong, close follow-up in clinic Given the patient has no signs of infection, no need for antibiotics at present time X-ray without any evidence of osteo-myelitis Hardware in good place No suspicion for DVT, patient has no calf pain or swelling Patient was splinted back in long leg splint as well as sugar tong Follow-up with orthopedics in clinic Patient was given strict precautions to come back if symptoms are not improving or she has worsening pain, swelling, chest pain or shortness of breath, discoloration of the foot - Vital Signs Vital signs: Temp Pulse Resp BP Pulse Ox 98.9 F 116 H 20 118/65 99 07/31/17 01:44 07/31/17 01:44 07/31/17 01:44 07/31/17 01:44 07/31/17 01:44 - Diagnostic Test Radiology reviewed: Image reviewed - Findings: Talocalcaneal screw fixation, small ossicular fragmentation of the medial malleolus consistent with old avulsive injury. Moderate lateral malleolar swelling and calcification. IMPRESSION: Moderate swelling of the right lateral malleolus. Hardware fixation. Prior injury. Dictated by: MICHAEL TARIQ MD [id number] Procedures - Immobilization Right Lower Ankle Time completed: 06:55 Pre-Proc Neuro Vasc Exam: Normal Immobilizer type: Long leg posterior, Sugar tong Performed by: Provider Post-Proc Neuro Vasc Exam: Normal Alignment checked and good: Yes Notes: 07/31/17 06:55 Postprocedure examination with pink skin, patient has intact sensation in all the dermatomes of the foot, no cyanosis Discharge - Discharge Clinical Impression: Ankle edema Neuropraxia of right lower extremity Qualifiers: Encounter type: initial encounter Qualified Code(s): S84.91XA - Injury of unspecified nerve at lower leg level, right leg, initial encounter Condition: Stable Instructions: Splint Precautions ([facility]) Additional Instructions: Please follow-up with Dr. Ortega in clinic for reassessment of the ankle Today we did not find any evidence of infection or cellulitis of the foot Please continue to use crutches, do not bear any weight on your ankle Come back if you have worsening pain, swelling of the foot, numbness or tingling , pain out of proportion, discoloration of your foot Referrals: SOLO ORTEGA MD [ACTIVE STAFF] - Follow up in 1 week
--- NOTE | 2017-07-31 06:38 | RADIOLOGY REPORT (SQ) ---
EXAM DESCRIPTION: XR ANKLE 3 VIEWS CLINICAL HISTORY: 27 years Female, pain COMPARISON: None. Findings: Talocalcaneal screw fixation, small ossicular fragmentation of the medial malleolus consistent with old avulsive injury. Moderate lateral malleolar swelling and calcification. IMPRESSION: Moderate swelling of the right lateral malleolus. Hardware fixation. Prior injury.
[2017-07-31 08:35] VITALS: BP 108/70
== END 2017-07-31 07:50 | disposition home or self-care (01) ==
LOC: ER 01:37
PROC: 2W3LX1Z Immobilization of Right Lower Extremity using Splint (ICD-10-PCS; principal; 2017-07-31)
DX: S84.91XA Injury of unspecified nerve at lower leg level, right leg, initial encounter (principal); R20.0 Anesthesia of skin; F17.200 Nicotine dependence, unspecified, uncomplicated; X58.XXXA Exposure to other specified factors, initial encounter
CPT/HCPCS: 99283

== ENCOUNTER 2017-12-13 00:11 | Emergency (ER) | payer MEDICAID, OTHER ==
[2017-12-13] MEDS ORDERED: AMPICILLIN SOD/SULBACTAM 3 GM VIAL IV ONE (00:28)
[2017-12-13] MEDS ORDERED: DEXAMETHASONE SOD PHOS INJ 10 MG/1 ML VIAL IV ONE (00:28)
[2017-12-13] MEDS ORDERED: NORMAL SALINE 1000 ML 1,000 ML IV ONE (00:28)
[2017-12-13] MEDS ORDERED: ACETAMINOPHEN 325 MG TABLET PO ONE (00:33)
--- NOTE | 2017-12-13 00:33 | ER Document Report ---
ED ENT - General Mode of Arrival: Ambulatory Information source: Patient TRAVEL OUTSIDE OF THE [place] IN LAST 30 DAYS: No - HPI Patient complains to provider of: Throat problem Onset: Yesterday Onset/Duration: Gradual Pain Level: 4 Location of pain: Throat Associated symptoms: Difficulty swallowing, Sore throat. denies: Cough Similar symptoms previously: No Recently seen / treated by doctor: No <GABY CHACKO - Last Filed: 12/13/17 00:50> <RANJIT FREEMAN - Last Filed: 12/13/17 03:19> - General Chief Complaint: Sore Throat Stated Complaint: SORE THROAT Time Seen by Provider: 12/13/17 00:24 Notes: Patient presents complaining of sore throat that started yesterday. Patient complains of difficulty swallowing. Patient denies any fever. (GABY CHACKO) - Related Data Allergies/Adverse Reactions: No Known Allergies Allergy (Verified 07/18/17 10:19) Past Medical History - General Information source: Patient - Social History Smoking Status: Current Every Day Smoker Frequency of alcohol use: Occasional Drug Abuse: None Occupation: None Family History: Reviewed & Not Pertinent Neurological Medical History: Denies: Hx Cerebrovascular Accident, Hx Seizures Renal/ Medical History: Denies: Hx Peritoneal Dialysis Musculoskeletal Medical History: Denies Hx Arthritis, Reports Hx Musculoskeletal Trauma Psychiatric Medical History: Reports: Hx Anxiety, Hx Depression Traumatic Medical History: Reports: Hx Fractures Past Surgical History: Reports: Hx Orthopedic Surgery - right foot - Immunizations Immunizations up to date: Yes Hx Diphtheria, Pertussis, Tetanus Vaccination: Yes - UNSURE WHEN <GABY CHACKO - Last Filed: 12/13/17 00:50> Review of Systems - Review of Systems Constitutional: No symptoms reported EENT: Throat pain, Difficulty swallowing Cardiovascular: No symptoms reported Respiratory: No symptoms reported. denies: Cough Gastrointestinal: No symptoms reported. denies: Vomiting Genitourinary: No symptoms reported Female Genitourinary: No symptoms reported Musculoskeletal: No symptoms reported Skin: No symptoms reported Hematologic/Lymphatic: No symptoms reported Neurological/Psychological: No symptoms reported <GABY CHACKO - Last Filed: 12/13/17 00:50> Physical Exam - General General appearance: Appears well, Alert In distress: None - HEENT Head: Normocephalic, Atraumatic Eyes: Normal Nasal: Normal Mouth/Lips: Normal Mucous membranes: Normal Pharynx: Peritonsillar abscess - right, Tonsillar hypertrophy Neck: Lymphadenopathy - Respiratory Respiratory status: No respiratory distress Chest status: Nontender Breath sounds: Normal. No: Rales, Rhonchi, Stridor, Wheezing Chest palpation: Normal - Cardiovascular Rhythm: Regular, Tachycardia Heart sounds: S1 appreciated, S2 appreciated Murmur: No - Back Back: Normal, Nontender - Extremities General upper extremity: Normal inspection, Normal ROM General lower extremity: Normal inspection, Normal ROM - Neurological Neuro grossly intact: Yes Cognition: Normal [place] Coma Scale Eye Opening: Spontaneous Any Coma Scale Verbal: Oriented Any Coma Scale Motor: Obeys Commands Any Coma Scale Total: 15 - Psychological Associated symptoms: Normal affect, Normal mood - Skin Skin Temperature: Warm Skin Moisture: Dry Skin Color: Normal <GABY CHACKO - Last Filed: 12/13/17 00:50> - Vital signs Vitals: Temp Pulse Resp BP Pulse Ox 99.1 F 109 H 20 134/69 H 98 12/13/17 00:19 12/13/17 00:19 12/13/17 00:19 12/13/17 00:19 12/13/17 00:19 Course <GABY CHACKO - Last Filed: 12/13/17 00:50> - Laboratory Result Diagrams: 12/13/17 01:00 12/13/17 01:00 <RANJIT FREEMAN - Last Filed: 12/13/17 03:19> - Re-evaluation Re-evalutation: 12/13/17 00:51 Bedside report and handoff given to Ranjit SCHAFFER (GABY CHACKO) 12/13/17 02:11 CT of the soft tissues of the neck showing findings compatible with tonsillitis with no discerned or drainable abscess noted. Anterior cervical adenopathy. Patient has leukocytosis with left shift, no bandemia. Strep test is negative. Chemistry unremarkable. On reevaluation of the patient after medications including dexamethasone patient has significant reduction in the swelling already, I can now discern exudates, airway is patent, patient now speaks without any difficulty or hoarseness, she is remarking on how much better she feels and speaks. Patient tolerating p.o. without any difficulty. Discussed treatment options and workup. I do suspect bacterial component with her white blood cell count and left shift, strep is negative, however after discussion decision was made to proceed with treatment of strep by penicillin G IM. Patient does not want to take pills for 10 days. Discussed expectations, follow-up, and return precautions in detail. Patient states satisfaction and agreement. (RANJIT FREEMAN) - Vital Signs Vital signs: Temp Pulse Resp BP Pulse Ox 98.2 F 75 16 130/74 H 98 12/13/17 02:38 12/13/17 02:38 12/13/17 02:38 12/13/17 02:38 12/13/17 02:38 - Laboratory Laboratory results interpreted by me: 12/13/17 12/13/17 01:00 01:00 WBC 18.7 H Seg Neutrophils % 82.0 H Lymphocytes % 11.2 L Absolute Neutrophils 15.3 H BUN 4 L Discharge <GABY CHACKO - Last Filed: 12/13/17 00:50> <RANJIT FREEMAN - Last Filed: 12/13/17 03:19> - Discharge Clinical Impression: Exudative pharyngitis, Cervical adenopathy Condition: Stable Disposition: HOME, SELF-CARE Additional Instructions: Your evaluation is consistent with a bacterial infection of your throat, possibly strep. Your CAT scan shows swollen lymph nodes and swollen tonsils but no drainable abscess or other concerning finding is seen at this time. You have been medicated for the swelling and infection already, drink plenty of fluids, take Tylenol or ibuprofen for pain/fever/chills. Follow-up with primary care. Return if you worsen including difficulty swallowing, difficulty breathing, spiking fever, increased pain, or any other concerning or worsening symptoms. Referrals: CEE JOHN MD [ACTIVE STAFF] - Follow up as needed
[2017-12-13] MEDS ORDERED: MORPHINE SULFATE 10 MG/ML INJ IV ONE (00:50)
[2017-12-13 01:31] LABS: ABSOLUTE BASOPHILS # (AUTO) 0.1 10^3/uL (0.0-0.2); ABSOLUTE EOSINOPHILS # (AUTO) 0.1 10^3/uL (0.0-0.6); ABSOLUTE LYMPHOCYTES (AUTO) 2.1 10^3/uL (0.5-4.7); ABSOLUTE MONOCYTES (AUTO) 1.1 10^3/uL (0.1-1.4); ABSOLUTE NEUT (AUTO) 15.3 10^3/uL (1.7-8.2); BASOPHILS % (AUTO) 0.4 % (0-2); EOSINOPHILS % (AUTO) 0.6 % (0-6); HEMATOCRIT 36.1 % (36.0-47.0); HEMOGLOBIN 12.6 g/dL (12.0-15.5); LYMPHOCYTES % (AUTO) 11.2 % (13-45); MEAN CORPUSCULAR HEMOGLOBIN 32.3 pg (27.0-33.4); MEAN CORPUSCULAR HGB CONC 34.9 g/dL (32.0-36.0); MEAN CORPUSCULAR VOLUME 93 fl (80-97); MONOCYTES % (AUTO) 5.8 % (3-13); PLATELET COUNT 205 10^3/uL (150-450); RED CELL DISTRIBUTION WIDTH 13.1 % (11.5-14.0); TOTAL CELLS COUNTED % (AUTO) 100 %; WHITE BLOOD COUNT 18.7 10^3/uL (4.0-10.5)
[2017-12-13 01:51] LABS: ANION GAP 10 (5-19); BLOOD UREA NITROGEN 4 mg/dL (7-20); CALCIUM 9.8 mg/dL (8.4-10.2); CARBON DIOXIDE 24 mmol/L (22-30); CHLORIDE 104 mmol/L (98-107); GLUCOSE 101 mg/dL (75-110); POTASSIUM 3.6 mmol/L (3.6-5.0); SODIUM 138.1 mmol/L (137-145)
--- NOTE | 2017-12-13 01:51 | RADIOLOGY REPORT (SQ) ---
EXAM DESCRIPTION: CT NECK CHEST WITH IV CONTRAST COMPLETED DATE/TME: 12/13/2017 00:30 CLINICAL HISTORY: 27 years, Female, sore throat, tonsillar swelling COMPARISON: None. TECHNIQUE: Axial CT images of the neck soft tissues obtained following the uncomplicated intravenous administration of 75 mL [address]mn[address] scanners at this facility use dose modulation, iterative reconstruction, and/or weight based dosing when appropriate to reduce radiation dose to as low as reasonably achievable (ALARA). [facility]: Dose Right [facility]: CareDose [facility]: Dose Right [facility]: Teradose 4D [facility]: Symetrica FINDINGS: No abnormalities of visualized intracranial contents. Visualized orbits and globes are unremarkable. Visualized paranasal sinuses are well aerated. Mastoid air cells are skull base is intact. Visualized lung apices are clear. No acute abnormalities of visualized cervical spine are ribs. No acute abnormalities of the buccal or meter attendant space. Visualized lung bases symmetric. Enlargement and edema of the faucial tonsils without well-defined rim-enhancing fluid collection. The visualized parapharyngeal and retropharyngeal spaces are within normal limits. Mildly prominent bilateral cervical lymph nodes are likely reactive. Visualized thyroid gland is unremarkable. No abnormalities of the epiglottis. No abnormalities of the trachea or superior mediastinum. No abnormalities of the great vessels. No abnormalities of the parotid or submandibular glands. IMPRESSION: 1. Enlargement and edema of the faucial tonsils. No well-defined rim-enhancing fluid collection. Findings compatible with tonsillitis. 2. Bilateral cervical lymphadenopathy is likely reactive. TECHNICAL DOCUMENTATION: Quality ID # 436: Final reports with documentation of one or more dose reduction techniques (e.g., Automated exposure control, adjustment of the mA and/or kV according to patient size, use of iterative reconstruction technique) 2010 [employer]- All Rights Reserved
[2017-12-13] MEDS ORDERED: HYDROCODONE/ACETAMINOPHEN 5-325 MG (6 TAB/ER DISP) PO PRN (02:06)
[2017-12-13] MEDS ORDERED: PENICILLIN G BENZATHINE 1.2 MILLION UNIT/2 ML DISP.SYRIN IM ONE (02:06)
[2017-12-13 02:39] VITALS: BP 130/74
== END 2017-12-13 02:38 | disposition home or self-care (01) ==
LOC: ER 00:11
DX: J02.9 Acute pharyngitis, unspecified (principal); R59.9 Enlarged lymph nodes, unspecified
CPT/HCPCS: 99284; 96372; 96361; 96375; 96365; 36415; 87040; 87070; 87880; 85025; 80048; 70491; J0295; J2270; J0561; J1100

== ENCOUNTER 2018-10-01 08:03 | Emergency (ER) | payer SELFPAY ==
--- NOTE | 2018-10-01 08:22 | ER Document Report ---
ED General - General Chief Complaint: Abscess Stated Complaint: POSSIBLE ABSCESS Time Seen by Provider: 10/01/18 08:20 Primary Care Provider: SHANNON SANCHEZ MD [ACTIVE STAFF] - Follow up as needed Mode of Arrival: Ambulatory Information source: Patient TRAVEL OUTSIDE OF THE [place] IN LAST 30 DAYS: No - HPI Notes: 28-year-old female presents to ED with complaints of left groin abscess that she noticed last night, states pain is 6 out of 10, throbbing and constant. Tried heat pack without relief last night. Patient is unsure of her last menstrual cycle, Cannot recall, states she is not on control. Denies any trauma to the groin. no otc meds tried. Worse with time and touching abscess. Unsure of MRSA history. denies fevers, chills, chest pain,palpitations, shortness of breath, dyspnea, nausea, vomiting, diarrhea, abdominal pain, headaches, weakness, bowel or bladder dysfunction, vaginal pain, vaginal discharge or pelvic pain, saddle anesthesia, numbness or tingling in bilateral upper or lower extremities equally, muscle paralysis, weakness in bilateral upper or lower extremities equally or rash. - Related Data Allergies/Adverse Reactions: No Known Allergies Allergy (Verified 10/01/18 08:04) Past Medical History - General Information source: Patient - Social History Smoking Status: Unknown if Ever Smoked Family History: Reviewed & Not Pertinent - Past Medical History Cardiac Medical History: Denies: Hx Coronary Artery Disease, Hx Heart Attack, Hx Hypertension Pulmonary Medical History: Denies: Hx Asthma, Hx Bronchitis, Hx COPD, Hx Pneumonia Neurological Medical History: Denies: Hx Cerebrovascular Accident, Hx Seizures Renal/ Medical History: Denies: Hx Peritoneal Dialysis Musculoskeletal Medical History: Denies Hx Arthritis, Reports Hx Musculoskeletal Trauma Psychiatric Medical History: Reports: Hx Anxiety, Hx Depression Traumatic Medical History: Reports: Hx Fractures Past Surgical History: Reports: Hx Orthopedic Surgery - right foot - Immunizations Immunizations up to date: Yes Hx Diphtheria, Pertussis, Tetanus Vaccination: Yes - UNSURE WHEN Review of Systems - Review of Systems Constitutional: No symptoms reported EENT: No symptoms reported Cardiovascular: No symptoms reported Respiratory: No symptoms reported Gastrointestinal: No symptoms reported Genitourinary: No symptoms reported Female Genitourinary: See HPI Musculoskeletal: No symptoms reported Skin: See HPI Hematologic/Lymphatic: No symptoms reported Neurological/Psychological: No symptoms reported Physical Exam - Vital signs Vitals: Temp Pulse Resp BP Pulse Ox 97.7 F 109 H 18 130/61 H 98 10/01/18 08:06 10/01/18 08:06 10/01/18 08:06 10/01/18 08:06 10/01/18 08:06 - Notes Notes: PHYSICAL EXAMINATION: GENERAL: Well-appearing, well-nourished and in no acute distress. HEAD: Atraumatic, normocephalic. ENT: Nares patent, oropharynx clear without exudates. Moist mucous membranes. NECK: Normal range of motion, supple without lymphadenopathy LUNGS: Breath sounds clear to auscultation bilaterally and equal. No wheezes rales or rhonchi. HEART: Regular rate and rhythm without murmurs ABDOMEN: Soft, nontender, nondistended abdomen. No guarding, no rebound. No masses appreciated. Female : left labial majora with erythema, induration, warmth to touch with mild fluctuance approx 1 cm x 1.5 cm, no surrounding erythema, no surrounding lymphadenopathy. Internal pelvic exam deferred Musculoskeletal: Normal range of motion, no pitting or edema. No cyanosis. NEUROLOGICAL: Cranial nerves grossly intact. Normal speech, normal gait. Normal sensory, motor exams PSYCH: Normal mood, normal affect. SKIN: Warm, Dry, normal turgor, no rashes or lesions noted. C female exam Course - Re-evaluation Re-evalutation: 10/01/18 08:31 Afebrile, slightly tachycardic however patient is in pain, nursing notes reviewed. Vitals reviewed. Patient is unsure of last menstrual cycle, urine is negative.Patient presents with symptoms most consistent with an acute cellulitis with abscess. Vitals within normal limits. Patient does not meet sepsis criteria is overall very well in appearance. Exam and history are not consistent with DVT. Patient will be started on coverage for both staph and strep. At this time will discharge with return precautions and follow-up recommendations. Verbal discharge instructions given a the bedside and opportunity for questions given. Medication warnings reviewed. Patient is in agreement with this plan and has verbalized understanding of return precautions and the need for primary care follow-up in the next 24-72 hours. - Vital Signs Vital signs: Temp Pulse Resp BP Pulse Ox 97.7 F 109 H 14 130/61 H 98 10/01/18 08:06 10/01/18 08:06 10/01/18 09:00 10/01/18 08:06 10/01/18 08:06 Procedures - Incision and Drainage Left Groin Time completed: 08:32 Type: Simple Anesthetic type: 1% Lidocaine mL's of anesthetic: 3 - mL Blade size: 11 I&D procedure: Shurclens applied Incision Method: Incision made by scalpel Amount/type of drainage: Purulent drainage approximately 7 mL Notes: 10/01/18 08:32 Verbal consent obtained. VSS. Vision was 11 blade scalpel, purulent drainage approximately 7 mL's wound culture obtained. Packed the wound with iodoform 1/4th, approximately 4 cm. Patient tolerated procedure without incident. All questions concerns answered by this provider. Showering instructs given. Discharge - Discharge Clinical Impression: Abscess of groin, left Condition: Stable Disposition: HOME, SELF-CARE Instructions: Abscess ([facility]), Post Incision and Drainage, Trimethoprim-Sulfa ([facility]) Additional Instructions: Abscess You have an abscess (boil). This a pus-forming infection, usually due to staph. Some boils may be left to drain on their own, but most require lancing. From the time the tender lump first appears, it may be three or four days before the abscess is ready to patrick. Local heat and rest help at this stage of treatment. An antibiotic may prevent spread of the infection. Once the abscess is opened, packing may be placed into it. This is done so pus is not sealed inside by premature closure of the cavity. The packing will be removed at your follow-up visit or you may be advised to remove it yourself at home. Sometimes this packing must be replaced a few times during healing. The wound will heal with surprisingly little scar. Depending on the size and location of an abscess, healing can take one to four weeks. You may shower and wash the area around the incision site two or three times a day. Antibiotics may be prescribed, but are usually not necessary after an abscess has been drained. If you develop fever, chilling, worsening pain, or increasing swelling in the area, call the doctor or return immediately. Return to the ED in the next 48 hours for wound recheck, possible repacking. Wound culture was obtained today, will call with results, he will be started on oral antibiotics, take with food to prevent any GI upset. Do not immerse herself in a body of water until wound has closed, you may wash with soap and water and rinse, do not remove packing. You experience any fevers, chills, worsening pain, any numbness or tingling, etc. return to the emergency room immediately. Return immediately for any new or worsening symptoms. Follow up with primary care provider, call tomorrow to make followup appointment. Prescriptions: Clindamycin HCl 300 mg PO Q6H #28 capsule Forms: Return to Work Referrals: ANGELY VALENTE DO [ACTIVE STAFF] - Follow up as needed ADAN CATALAN MD [COMMUNITY BASED STAFF] - Follow up as needed
[2018-10-01] MEDS ORDERED: LIDOCAINE 1% INJ-PF (10 MG/ML) 30 ML SDV INJ ONE (08:26)
[2018-10-01 09:45] VITALS: BP 136/82
== END 2018-10-01 09:51 | disposition home or self-care (01) ==
LOC: ER 08:03
DX: L02.214 Cutaneous abscess of groin (principal)
CPT/HCPCS: 99283; 87070; 87205; 81025; 10060; A6266

== ENCOUNTER 2018-11-22 09:02 | Emergency (ER) | payer SELFPAY ==
[2018-11-22 09:24] VITALS: BP 112/64
[2018-11-22] MEDS ORDERED: IBUPROFEN 800 MG TABLET PO ONE (09:43)
--- NOTE | 2018-11-22 09:44 | ER Document Report ---
HPI - HPI Patient complains to provider of: Right foot and ankle pain Time Seen by Provider: 11/22/18 09:33 Onset/Duration: Persistent Quality of pain: Achy Pain Level: 2 Context: Patient reports having orthopedic surgery on her right foot and ankle with her last surgical procedure in July of this year. Patient denies any injury but complains of right foot and ankle pain for the past 2 months. Patient is awaiting insurance to get straightened out so that she can follow back up with her surgeon. Patient complains of swelling and pain with weightbearing Associated Symptoms: Other - Right foot and ankle pain Exacerbated by: Standing, Movement, Walking Relieved by: Denies Similar symptoms previously: No Recently seen / treated by doctor: No - ROS ROS below otherwise negative: Yes Systems Reviewed and Negative: Yes All other systems reviewed and negative - CONSTITUTIONAL Constitutional: DENIES: Fever - GASTROINTESTINAL Gastrointestinal: DENIES: Nausea - REPRODUCTIVE Reproductive: DENIES: : - MUSCULOSKELETAL Musculoskeletal: REPORTS: Extremity pain, Swelling - DERM Skin Color: Normal Skin Problems: None Past Medical History - General Information source: Patient - Social History Smoking Status: Current Every Day Smoker Smoking Education Provided: Yes Frequency of alcohol use: None Drug Abuse: None Occupation: [employer] Lives with: Family Family History: Reviewed & Not Pertinent Renal/ Medical History: Denies: Hx Peritoneal Dialysis Musculoskeletal Medical History: Reports Hx Musculoskeletal Trauma Psychiatric Medical History: Reports: Hx Anxiety, Hx Depression Traumatic Medical History: Reports: Hx Fractures Past Surgical History: Reports: Hx Orthopedic Surgery - right foot - Immunizations Immunizations up to date: Yes Hx Diphtheria, Pertussis, Tetanus Vaccination: Yes - UNSURE WHEN Vertical Provider Document - CONSTITUTIONAL Agree With Documented VS: Yes Exam Limitations: No Limitations General Appearance: WD/WN, No Apparent Distress - INFECTION CONTROL TRAVEL OUTSIDE OF THE [place] IN LAST 30 DAYS: No - HEENT HEENT: Atraumatic, Normocephalic - NECK Neck: Normal Inspection - RESPIRATORY Respiratory: No Respiratory Distress - CARDIOVASCULAR Pulses: Normal: Dorsalis pedis - MUSCULOSKELETAL/EXTREMETIES Musculoskeletal/Extremeties: MAEW, FROM, Tender - Right ankle tenderness with lateral malleolar edema, right midfoot tenderness over navicular bone - NEURO Level of Consciousness: Awake, Alert, Appropriate Motor/Sensory: No Motor Deficit - DERM Integumentary: Warm, Dry, No Rash Course - Re-evaluation Re-evalutation: 11/22/18 11:10 Patient advised of radiology report findings. Patient encouraged to follow-up with her orthopedic surgeon for further evaluation. Offered immobilization. Patient states that she has a wrap she can put on her ankle and has crutches at home. Patient is requesting a note for her employer. - Vital Signs Vital signs: Temp Pulse Resp BP Pulse Ox 97.8 F 78 16 112/64 98 11/22/18 09:23 11/22/18 09:23 11/22/18 09:23 11/22/18 09:11/22/18 09:23 - Diagnostic Test Radiology reviewed: Image reviewed, Reports reviewed Discharge - Discharge Clinical Impression: Right foot pain, Hardware failure Right ankle pain Qualifiers: Chronicity: chronic Qualified Code(s): M25.571 - Pain in right ankle and joints of right foot Condition: Stable Disposition: HOME, SELF-CARE Instructions: Use of Crutches ([facility]) Additional Instructions: Return immediately for any new or worsening symptoms Followup with your primary care provider, call tomorrow to make a followup appointment Use your crutches that you have at home Follow-up with your orthopedic surgeon for further evaluation. You have x-ray findings concerning for possible hardware failure. Your doctor may need to do additional imaging such as CT scan on an outpatient basis. Prescriptions: Naproxen [Naprosyn 250 Nmg Tablet] 1 tab PO BID #14 tablet Forms: Return to Work Referrals: SOLO ORTEGA MD [ACTIVE STAFF] - Follow up as needed
--- NOTE | 2018-11-22 10:19 | RADIOLOGY REPORT (SQ) ---
EXAM DESCRIPTION: FOOT RIGHT COMPLETE; ANKLE RIGHT COMPLETE COMPLETED DATE/TIME: 11/22/2018 10:04 am REASON FOR STUDY: r foot/ankle pain, ?hardware failure COMPARISON: 05/31/2013 NUMBER OF VIEWS: Three views. TECHNIQUE: AP, lateral and oblique radiographic images acquired of the right foot and ankle. LIMITATIONS: None. FINDINGS: MINERALIZATION: Normal. BONES: There has been interval subtalar screw fusion compared to prior examination dated 2013. There is subtle lucency about the calcaneal fusion screws. There are redemonstrated screws within the lisa us unchanged from prior. JOINTS: No effusions. SOFT TISSUES: No soft tissue swelling. No foreign body. OTHER: No other significant finding. IMPRESSION: No acute fracture or dislocation of the right foot or ankle. There has been interval sub talar screw fusion compared to prior examination dated 2013. There is subtle lucency about the calca carli fusion screws, and somewhat concerning for instability or loosening. There are redemonstrated s crews within the talus unchanged from prior. Integrity of hardware and bony incorporation of fusion may be further evaluated by nonemergent CT if desired. TECHNICAL DOCUMENTATION: JOB ID: [id number] [employer]- All Rights Reserved Reading location - IP/workstation name: [email or web address]
--- NOTE | 2018-11-22 10:19 | RADIOLOGY REPORT (SQ) ---
EXAM DESCRIPTION: FOOT RIGHT COMPLETE; ANKLE RIGHT COMPLETE COMPLETED DATE/TIME: 11/22/2018 10:04 am REASON FOR STUDY: r foot/ankle pain, ?hardware failure COMPARISON: 05/31/2013 NUMBER OF VIEWS: Three views. TECHNIQUE: AP, lateral and oblique radiographic images acquired of the right foot and ankle. LIMITATIONS: None. FINDINGS: MINERALIZATION: Normal. BONES: There has been interval subtalar screw fusion compared to prior examination dated 2013. There is subtle lucency about the calcaneal fusion screws. There are redemonstrated screws within the lisa us unchanged from prior. JOINTS: No effusions. SOFT TISSUES: No soft tissue swelling. No foreign body. OTHER: No other significant finding. IMPRESSION: No acute fracture or dislocation of the right foot or ankle. There has been interval sub talar screw fusion compared to prior examination dated 2013. There is subtle lucency about the calca carli fusion screws, and somewhat concerning for instability or loosening. There are redemonstrated s crews within the talus unchanged from prior. Integrity of hardware and bony incorporation of fusion may be further evaluated by nonemergent CT if desired. TECHNICAL DOCUMENTATION: JOB ID: [id number] [employer]- All Rights Reserved Reading location - IP/workstation name: [email or web address]
== END 2018-11-22 11:22 | disposition home or self-care (01) ==
LOC: ER 09:02
DX: T85.898A Other specified complication of other internal prosthetic devices, implants and grafts, initial encounter (principal); Y83.9 Surgical procedure, unspecified as the cause of abnormal reaction of the patient, or of later complication, without mention of misadventure at the time of the procedure; M25.571 Pain in right ankle and joints of right foot; M79.671 Pain in right foot
CPT/HCPCS: 99283

== ENCOUNTER 2019-02-13 15:47 | Emergency (ER) | payer MEDICAID ==
--- NOTE | 2019-02-13 17:04 | ER Document Report ---
ED Medical Screen (RME) - General Chief Complaint: Vaginal Bleeding Stated Complaint: VAGINAL BLEEDING/ABDOMINAL PAIN Time Seen by Provider: 02/13/19 17:01 Mode of Arrival: Ambulatory TRAVEL OUTSIDE OF THE [place] IN LAST 30 DAYS: No - HPI Notes: 02/13/19 17:02 28-year-old female presents to the ED for vaginal bleeding and pelvic pain for the last 2 days. Patient states her last menstrual period was 02/06/2019. Pain is 4/10, throbbing achy. Patient states her periods have been "very heavy, passing lots of blood clots". Patient had the Ensure completed. Has not followed up with her primary care provider for this issue. Denies any fevers or chills, reports she did vomit once, no diarrhea. I have greeted and performed a rapid initial assessment of this patient. A comp rehensive ED assessment and evaluation of the patient, analysis of test results and completion of the medical decision making process will be conducted by additional ED providers. PHYSICAL EXAMINATION: GENERAL: Well-appearing, well-nourished and in no acute distress. HEAD: Atraumatic, normocephalic. EYES: Pupils equal round extraocular movements intact, conjunctiva are normal. NECK: Normal range of motion LUNGS: No respiratory distress Musculoskeletal: Normal range of motion NEUROLOGICAL: Normal speech, normal gait. PSYCH: Normal mood, normal affect. SKIN: Warm, Dry, normal turgor, no rashes or lesions noted. - Related Data Allergies/Adverse Reactions: No Known Allergies Allergy (Verified 02/13/19 17:00) Past Medical History - Social History Family history: Reviewed & Not Pertinent - Past Medical History Cardiac Medical History: Denies: Hx Coronary Artery Disease, Hx Heart Attack, Hx Hypertension Pulmonary Medical History: Denies: Hx Asthma, Hx Bronchitis, Hx COPD, Hx Pneumonia Neurological Medical History: Denies: Hx Cerebrovascular Accident, Hx Seizures Renal/ Medical History: Denies: Hx Peritoneal Dialysis Musculoskeltal Medical History: Denies Hx Arthritis, Reports Hx Musculoskeletal Trauma Psychiatric Medical History: Reports: Hx Anxiety, Hx Depression Traumatic Medical History: Reports: Hx Fractures Past Surgical History: Reports: Hx Orthopedic Surgery - right foot - Immunizations Immunizations up to date: Yes Hx Diphtheria, Pertussis, Tetanus Vaccination: Yes - UNSURE WHEN Physical Exam - Vital signs Vitals: BP 100/60 02/13/19 15:48 Course - Vital Signs Vital signs: Temp Pulse Resp BP Pulse Ox 98.4 F 68 18 139/48 H 99 02/13/19 16:04 02/13/19 16:04 02/13/19 16:04 02/13/19 16:04 02/13/19 16:04
[2019-02-13 18:22] LABS: ABSOLUTE BASOPHILS # (AUTO) 0.1 10^3/uL (0.0-0.2); ABSOLUTE EOSINOPHILS # (AUTO) 0.4 10^3/uL (0.0-0.6); ABSOLUTE LYMPHOCYTES (AUTO) 3.4 10^3/uL (0.5-4.7); ABSOLUTE MONOCYTES (AUTO) 0.6 10^3/uL (0.1-1.4); ABSOLUTE NEUT (AUTO) 6.8 10^3/uL (1.7-8.2); BASOPHILS % (AUTO) 1.1 % (0-2); EOSINOPHILS % (AUTO) 3.4 % (0-6); HEMATOCRIT 40.9 % (36.0-47.0); HEMOGLOBIN 14.1 g/dL (12.0-15.5); LYMPHOCYTES % (AUTO) 29.8 % (13-45); MEAN CORPUSCULAR HEMOGLOBIN 33.1 pg (27.0-33.4); MEAN CORPUSCULAR HGB CONC 34.4 g/dL (32.0-36.0); MEAN CORPUSCULAR VOLUME 96 fl (80-97); MONOCYTES % (AUTO) 5.6 % (3-13); PLATELET COUNT 233 10^3/uL (150-450); RED BLOOD COUNT 4.24 10^6/uL (3.72-5.28); RED CELL DISTRIBUTION WIDTH 12.9 % (11.5-14.0); SEGMENTED NEUTROPHILS % (AUTO) 60.1 % (42-78); TOTAL CELLS COUNTED % (AUTO) 100 %; WHITE BLOOD COUNT 11.3 10^3/uL (4.0-10.5)
[2019-02-13 18:41] LABS: AMORPHOUS SEDIMENT,URINE TRACE /HPF; APPEARANCE,URINE SLIGHTLY-CLOUDY; BILIRUBIN,URINE NEGATIVE (NEGATIVE); COLOR,URINE YELLOW; GLUCOSE, URINE NEGATIVE (NEGATIVE); KETONES,URINE NEGATIVE (NEGATIVE); LEUKOCYTE ESTERASE,URINE SMALL (NEGATIVE); NITRITE,URINE NEGATIVE (NEGATIVE); PROTEIN,URINE NEGATIVE (NEGATIVE); URINE SPECIFIC GRAVITY 1.021; UROBILINOGEN,URINE NEGATIVE mg/dL (<2.0)
--- NOTE | 2019-02-13 19:44 | RADIOLOGY REPORT (SQ) ---
EXAM DESCRIPTION: U/S NON OB PEL TV W/DOPPLER COMPLETED DATE/TIME: 02/13/2019 7:29 pm REASON FOR STUDY: vaginal bleeding, cramping, pelvic pain COMPARISON: 07/20/2016 TECHNIQUE: Dynamic and static grayscale images acquired of the pelvis via transvaginal approach and recorded on PACS. Additional selected color Doppler and spectral images recorded. LIMITATIONS: None. FINDINGS: UTERUS: Heterogeneous myometrium. An Essure device is present in the fundus. ENDOMETRIAL STRIPE: No focal or generalized thickening. No masses. CERVIX: 1.5 cm. No nabothian cysts. RIGHT OVARY AND DOPPLER: Normal size. No worrisome masses. Normal arterial vascular flow without evid ence for torsion. LEFT OVARY AND DOPPLER: Normal size. No worrisome masses. Normal arterial vascular flow without evide nce for torsion. 12 mm septated cyst. FREE FLUID: None noted. OTHER: No other significant finding. MEASUREMENTS: UTERUS: 7.9 x 4.8 x 5.6 cm. ENDOMETRIAL STRIPE: 6 mm. RIGHT OVARY: 3.3 x 2.3 x 2.3 cm. LEFT OVARY: 3.4 x 2.2 x 2.6 cm. IMPRESSION: The myometrium is heterogeneous, suggesting there may be some subtle fibroids. No other significant finding. TECHNICAL DOCUMENTATION: JOB ID: [id number] [employer]- All Rights Reserved Rev-07/27 Reading location - IP/workstation name: [email or web address]
--- NOTE | 2019-02-13 21:07 | ER Document Report ---
ED GI/ - General Chief Complaint: Vaginal Bleeding Stated Complaint: VAGINAL BLEEDING/ABDOMINAL PAIN Time Seen by Provider: 02/13/19 17:01 Primary Care Provider: [facility] [Provider Group] - Follow up as needed Mode of Arrival: Ambulatory Information source: Patient Notes: Otherwise healthy 28-year-old female presenting to the emergency department with concerns for vaginal bleeding. Patient reports that her period used to be regular but now she has been having bleeding for the last 2 months. She denies any syncope or lightheadedness. Denies passage of any clots. Denies any other symptoms to include nausea, vomiting, diarrhea, abdominal pain or dysuria. TRAVEL OUTSIDE OF THE [place] IN LAST 30 DAYS: No - Related Data Allergies/Adverse Reactions: No Known Allergies Allergy (Verified 02/13/19 17:00) Past Medical History - General Information source: Patient - Social History Smoking Status: Never Smoker Chew tobacco use (# tins/day): No Frequency of alcohol use: Rare Drug Abuse: None Family History: Reviewed & Not Pertinent Patient has suicidal ideation: No Patient has homicidal ideation: No - Past Medical History Cardiac Medical History: Denies: Hx Coronary Artery Disease, Hx Heart Attack, Hx Hypertension Pulmonary Medical History: Denies: Hx Asthma, Hx Bronchitis, Hx COPD, Hx Pneumonia Neurological Medical History: Denies: Hx Cerebrovascular Accident, Hx Seizures Renal/ Medical History: Denies: Hx Peritoneal Dialysis Musculoskeletal Medical History: Denies Hx Arthritis, Reports Hx Musculoskeletal Trauma Psychiatric Medical History: Reports: Hx Anxiety, Hx Depression Traumatic Medical History: Reports: Hx Fractures Past Surgical History: Reports: Hx Orthopedic Surgery - right foot - Immunizations Immunizations up to date: Yes Hx Diphtheria, Pertussis, Tetanus Vaccination: Yes - UNSURE WHEN Review of Systems - Review of Systems Constitutional: No symptoms reported EENT: No symptoms reported Cardiovascular: No symptoms reported Respiratory: No symptoms reported Gastrointestinal: No symptoms reported Genitourinary: No symptoms reported Female Genitourinary: Vaginal bleeding Musculoskeletal: No symptoms reported Skin: No symptoms reported Hematologic/Lymphatic: No symptoms reported Neurological/Psychological: No symptoms reported Physical Exam - Vital signs Vitals: BP 100/60 02/13/19 15:48 - Notes Notes: PHYSICAL EXAMINATION: GENERAL: Well-appearing, well-nourished and in no acute distress. HEAD: Atraumatic, normocephalic. EYES: Pupils equal round and reactive to light, extraocular movements intact, conjunctiva are normal. ENT: Nares patent, oropharynx clear without exudates. Moist mucous membranes. NECK: Normal range of motion, supple without lymphadenopathy LUNGS: Breath sounds clear to auscultation bilaterally and equal. No wheezes rales or rhonchi. HEART: Regular rate and rhythm without murmurs ABDOMEN: Soft, nontender, nondistended abdomen. No guarding, no rebound. No masses appreciated. Female : deferred Musculoskeletal: Normal range of motion, no pitting or edema. No cyanosis. NEUROLOGICAL: Cranial nerves grossly intact. Normal speech, normal gait. Normal sensory, motor exams PSYCH: Normal mood, normal affect. SKIN: Warm, Dry, normal turgor, no rashes or lesions noted. Course - Re-evaluation Re-evalutation: Laboratory 02/13/19 02/13/19 02/13/19 17:39 18:00 18:00 WBC 11.3 H RBC 4.24 Hgb 14.1 Hct 40.9 MCV 96 MCH 33.1 MCHC 34.4 RDW 12.9 Plt Count 233 Lymph % (Auto) 29.8 Coleman % (Auto) 5.6 Eos % (Auto) 3.4 Baso % (Auto) 1.1 Absolute Neuts (auto) 6.8 Absolute Lymphs (auto) 3.4 Absolute Monos (auto) 0.6 Absolute Eos (auto) 0.4 Absolute Basos (auto) 0.1 Seg Neutrophils % 60.1 Sodium Cancelled Potassium Cancelled Chloride Cancelled Carbon Dioxide Cancelled Anion Gap Cancelled BUN Cancelled Creatinine Cancelled Est GFR ( Amer) Cancelled Est GFR (Non-Af Amer) Cancelled Est GFR (MDRD) Non-Af Cancelled Glucose Cancelled Calcium Cancelled Total Bilirubin Cancelled Direct Bilirubin Cancelled Neonat Total Bilirubin Cancelled Neonat Direct Bilirubin Cancelled Neonat Indirect Bili Cancelled AST Cancelled ALT Cancelled Alkaline Phosphatase Cancelled Total Protein Cancelled Albumin Cancelled Lipase Cancelled EGFR Cancelled Urine Color YELLOW Urine Appearance SLIGHTLY-CLOUDY Urine pH 7.0 Ur Specific [place] 1.021 Urine Protein NEGATIVE Urine Glucose (UA) NEGATIVE Urine Ketones NEGATIVE Urine Blood MODERATE H Urine Nitrite NEGATIVE Urine Bilirubin NEGATIVE Urine Urobilinogen NEGATIVE Ur Leukocyte Esterase SMALL H Urine WBC (Auto) 4 Urine RBC (Auto) 12 Squamous Epi Cells Auto 3 Amorphous Sediment Auto TRACE Urine Mucus (Auto) RARE Urine Ascorbic Acid NEGATIVE Urine HCG, Qual NEGATIVE 02/13/19 18:00 WBC RBC Hgb Hct MCV MCH MCHC RDW Plt Count Lymph % (Auto) Coleman % (Auto) Eos % (Auto) Baso % (Auto) Absolute Neuts (auto) Absolute Lymphs (auto) Absolute Monos (auto) Absolute Eos (auto) Absolute Basos (auto) Seg Neutrophils % Sodium Cancelled Potassium Cancelled Chloride Cancelled Carbon Dioxide Cancelled Anion Gap Cancelled BUN Cancelled Creatinine Cancelled Est GFR ( Amer) Cancelled Est GFR (Non-Af Amer) Cancelled Est GFR (MDRD) Non-Af Cancelled Glucose Cancelled Calcium Cancelled Total Bilirubin Cancelled Direct Bilirubin Cancelled Neonat Total Bilirubin Cancelled Neonat Direct Bilirubin Cancelled Neonat Indirect Bili Cancelled AST Cancelled ALT Cancelled Alkaline Phosphatase Cancelled Total Protein Cancelled Albumin Cancelled Lipase Cancelled EGFR Cancelled Urine Color Urine Appearance Urine pH Ur Specific [place] Urine Protein Urine Glucose (UA) Urine Ketones Urine Blood Urine Nitrite Urine Bilirubin Urine Urobilinogen Ur Leukocyte Esterase Urine WBC (Auto) Urine RBC (Auto) Squamous Epi Cells Auto Amorphous Sediment Auto Urine Mucus (Auto) Urine Ascorbic Acid Urine HCG, Qual Transvaginal US 02/13/19 17:01 IMPRESSION: The myometrium is heterogeneous, suggesting there may be some subtle fibroids. No other significant finding. Labs as recorded above, H&H within normal limits. Transvaginal ultrasound with possible fibroids. No acute findings. Patient will be discharged home, plan to follow-up with [facility]. Patient verbalizes understanding and agreement with this plan. The patient's emergency department workup and current diagnosis were explained to the patient and or family. Follow-up instructions were provided. Medications if prescribed were discussed. Instructions for when to return to the emergency department including specific worrisome symptoms were discussed with the patient and/or family. - Vital Signs Vital signs: Temp Pulse Resp BP Pulse Ox 98.2 F 71 20 125/87 H 100 02/13/19 21:33 02/13/19 21:33 02/13/19 21:33 02/13/19 21:33 02/13/19 21:33 - Laboratory Result Diagrams: 02/13/19 18:00 02/13/19 18:00 Laboratory results interpreted by me: 02/13/19 02/13/19 17:39 18:00 WBC 11.3 H Urine Blood MODERATE H Ur Leukocyte Esterase SMALL H Discharge - Discharge Clinical Impression: Vaginal bleeding Urinary tract infection Qualifiers: Urinary tract infection type: site unspecified Hematuria presence: with hematuria Qualified Code(s): N39.0 - Urinary tract infection, site not specified Condition: Stable Disposition: HOME, SELF-CARE Additional Instructions: You were seen today for dysfunctional uterine bleeding. This is when you have vaginal bleeding and abdominal cramping off of your normal menstrual cycle. You have declined a pelvic examination here in the emergency department and testing for pelvic inflammatory disease. You need to follow-up with [facility] or your primary care physician the next 1-3 days. Return immediately if you worsening pain, you began bleeding through more than 2 pads per hour for more than 3 hours, you pass out, have persistent vomiting, develop a fever greater than 100.4F, or any other symptoms that are concerning to you. Forms: Return to Work, Treatment of Relative/Child Referrals: [facility] [Provider Group] - Follow up as needed
[2019-02-13 21:43] VITALS: BP 125/87
== END 2019-02-13 21:33 | disposition home or self-care (01) ==
LOC: ER 15:47
DX: N93.9 Abnormal uterine and vaginal bleeding, unspecified (principal); N39.0 Urinary tract infection, site not specified; R31.9 Hematuria, unspecified
CPT/HCPCS: 36415; 76830; 81001; 81025; 85025; 93976; 99284

== ENCOUNTER 2019-02-14 11:30 | Emergency (ER) | payer MEDICAID ==
--- NOTE | 2019-02-14 12:02 | ER Document Report ---
ED Medical Screen (RME) - General Chief Complaint: Pelvic Pain Stated Complaint: PELVIC PAIN Time Seen by Provider: 02/14/19 11:55 Primary Care Provider: TEN,SHU [Primary Care Provider] - Follow up as needed Notes: Patient is a 28-year-old female who presents emergency department with chief complaint of pelvic pain. Patient reports she is had pelvic pain for 3 to 4 years. Patient reports she did have an ultrasound yesterday and was told that she did have a small amount of bacteria in the urine. Patient reports she did not stay for the pelvic examination to rule out PID she was tired and left. Patient denies vaginal discharge. Patient reports she just got Medicaid back so she has not followed up with the [facility]. Patient reports her last menstrual cycle was February 06. Patient denies nausea, vomiting or diarrhea. TRAVEL OUTSIDE OF THE [place] IN LAST 30 DAYS: No - Related Data Allergies/Adverse Reactions: No Known Allergies Allergy (Verified 02/13/19 17:00) Past Medical History - Social History Chew tobacco use (# tins/day): No Frequency of alcohol use: None Drug Abuse: None Family history: Reviewed & Not Pertinent - Past Medical History Cardiac Medical History: Denies: Hx Coronary Artery Disease, Hx Heart Attack, Hx Hypertension Pulmonary Medical History: Denies: Hx Asthma, Hx Bronchitis, Hx COPD, Hx Pneumonia Neurological Medical History: Denies: Hx Cerebrovascular Accident, Hx Seizures Renal/ Medical History: Denies: Hx Peritoneal Dialysis Musculoskeltal Medical History: Denies Hx Arthritis, Reports Hx Musculoskeletal Trauma Psychiatric Medical History: Reports: Hx Anxiety, Hx Depression Traumatic Medical History: Reports: Hx Fractures Past Surgical History: Reports: Hx Orthopedic Surgery - right foot - Immunizations Immunizations up to date: Yes Hx Diphtheria, Pertussis, Tetanus Vaccination: Yes - UNSURE WHEN Physical Exam - Vital signs Vitals: BP 135/76 H 07/18/17 10:03 Course - Re-evaluation Re-evalutation: 02/14/19 12:02 I have greeted and performed a rapid initial assessment of this patient. A comprehensive ED assessment and evaluation of the patient, analysis of test results and completion of the medical decision making process will be conducted by additional ED providers. - Vital Signs Vital signs: Temp Pulse Resp BP Pulse Ox 98.4 F 75 20 130/74 H 94 02/14/19 11:54 02/14/19 11:54 02/14/19 11:54 02/14/19 11:54 02/14/19 11:54 Doctor's Discharge - Discharge Referrals: [facility]AL[facility],NO [Primary Care Provider] - Follow up as needed
[2019-02-14 12:58] LABS: APPEARANCE,URINE SLIGHTLY-CLOUDY; BILIRUBIN,URINE NEGATIVE (NEGATIVE); COLOR,URINE YELLOW; GLUCOSE, URINE NEGATIVE (NEGATIVE); KETONES,URINE NEGATIVE (NEGATIVE); LEUKOCYTE ESTERASE,URINE TRACE (NEGATIVE); NITRITE,URINE NEGATIVE (NEGATIVE); PROTEIN,URINE NEGATIVE (NEGATIVE); URINE SPECIFIC GRAVITY 1.025; UROBILINOGEN,URINE NEGATIVE mg/dL (<2.0)
[2019-02-14 13:11] LABS: ALBUMIN 4.6 g/dL (3.5-5.0); ALKALINE PHOSPHATASE 73 U/L (38-126); ANION GAP 11 (5-19); ASPARTATE AMINO TRANSFERASE 22 U/L (14-36); BILIRUBIN,DIRECT 0.1 mg/dL (0.0-0.4); BILIRUBIN,TOTAL 0.3 mg/dL (0.2-1.3); BLOOD UREA NITROGEN 10 mg/dL (7-20); CALCIUM 10.7 mg/dL (8.4-10.2); CARBON DIOXIDE 27 mmol/L (22-30); CHLORIDE 106 mmol/L (98-107); GLUCOSE 96 mg/dL (75-110); POTASSIUM 4.2 mmol/L (3.6-5.0); TOTAL PROTEIN 8.1 g/dL (6.3-8.2)
[2019-02-14 13:45] LABS: BACTERIA (WET MOUNT) 3+ BACTERIA SEEN; T.VAGINALIS (WET MOUNT) NO TRICHOMONAS SEEN; WBCS (WET MOUNT) 2+ WBCS SEEN; YEAST (WET MOUNT) NO YEAST SEEN
--- NOTE | 2019-02-14 14:27 | ER Document Report ---
ED GI/ <PABLO AYALA - Last Filed: 02/14/19 14:27> - General Mode of Arrival: Ambulatory Information source: Patient TRAVEL OUTSIDE OF THE [place] IN LAST 30 DAYS: No - HPI Patient complains to provider of: Pelvic pain. No: Diarrhea, Vaginal discharge, Vomiting Onset: Other - 4 years Timing/Duration: Persistent Quality of pain: Cramping Pain Level: 2 Location: Pelvis Vaginal bleeding (Compared to normal period): Spotting Sexual history: Active Associated symptoms: denies: Constipation, Diarrhea, Nausea, Urinary hesitancy, Urinary frequency, Urinary retention, Urinary urgency, Vaginal discharge, Vomiting Exacerbated by: Denies Relieved by: Denies Similar symptoms previously: Yes Recently seen / treated by doctor: No <GABY CHACKO - Last Filed: 02/14/19 19:39> - General Chief Complaint: Pelvic Pain Stated Complaint: PELVIC PAIN Time Seen by Provider: 02/14/19 11:55 Primary Care Provider: [facility] [Provider Group] - Follow up in 3-5 days Notes: Patient presents with a 4-year history of lower pelvic pain. Patient states she got tired of the pain today which prompted her visit. Patient states that she has been spotting for the past few days. Patient denies any fever nausea vomiting or diarrhea. Patient denies any urinary symptoms. Patient states she was here yesterday although got tired of waiting and had to leave. (GABY CHACKO) - Related Data Allergies/Adverse Reactions: No Known Allergies Allergy (Verified 02/13/19 17:00) Past Medical History - General Information source: Patient - Social History Smoking Status: Current Every Day Smoker Chew tobacco use (# tins/day): No Frequency of alcohol use: None Drug Abuse: None Occupation: [employer] Lives with: Family Family History: Reviewed & Not Pertinent Patient has suicidal ideation: No Patient has homicidal ideation: No Neurological Medical History: Denies: Hx Cerebrovascular Accident, Hx Seizures Renal/ Medical History: Denies: Hx Peritoneal Dialysis Musculoskeletal Medical History: Reports Hx Musculoskeletal Trauma Psychiatric Medical History: Reports: Hx Anxiety, Hx Depression Traumatic Medical History: Reports: Hx Fractures Past Surgical History: Reports: Hx Orthopedic Surgery - right foot - Immunizations Immunizations up to date: Yes Hx Diphtheria, Pertussis, Tetanus Vaccination: Yes - UNSURE WHEN <GABY CHACKO - Last Filed: 02/14/19 19:39> Review of Systems - Review of Systems Constitutional: No symptoms reported. denies: Fever, Recent illness EENT: No symptoms reported Cardiovascular: No symptoms reported. denies: Chest pain Respiratory: No symptoms reported Gastrointestinal: Abdominal pain. denies: Diarrhea, Nausea, Vomiting Genitourinary: No symptoms reported. denies: Dysuria, Flank pain Female Genitourinary: Vaginal bleeding - spotting. denies: Vaginal discharge Musculoskeletal: No symptoms reported Skin: No symptoms reported Hematologic/Lymphatic: No symptoms reported Neurological/Psychological: No symptoms reported <GABY CHACKO - Last Filed: 02/14/19 19:39> Physical Exam - General General appearance: Appears well, Alert In distress: None - HEENT Head: Normocephalic, Atraumatic Eyes: Normal Conjunctiva: Normal Nasal: Normal Mouth/Lips: Normal Mucous membranes: Normal Neck: Normal, Supple. No: Lymphadenopathy - Respiratory Respiratory status: No respiratory distress Chest status: Nontender Breath sounds: Normal. No: Rales, Rhonchi, Stridor, Wheezing Chest palpation: Normal - Cardiovascular Rhythm: Regular Heart sounds: S1 appreciated, S2 appreciated Murmur: No - Abdominal Inspection: Obese Distension: No distension Bowel sounds: Normal Tenderness: Tender - suprapubic Organomegaly: No organomegaly - Back Back: Normal, Nontender. No: CVA tenderness - Extremities General upper extremity: Normal inspection, Normal ROM General lower extremity: Normal inspection, Normal ROM - Neurological Neuro grossly intact: Yes Cognition: Normal [employer] Coma Scale Eye Opening: Spontaneous Any Coma Scale Verbal: Oriented [employer] Coma Scale Motor: Obeys Commands [employer] Coma Scale Total: 15 - Psychological Associated symptoms: Normal affect, Normal mood - Skin Skin Temperature: Warm Skin Moisture: Dry Skin Color: Normal <GABY CHACKO - Last Filed: 02/14/19 19:39> - Vital signs Vitals: BP 135/76 H 07/18/17 10:03 - Genitourinary Notes: Exam performed per Pablo Ayala NP, states no cervical motion tenderness no adnexal tenderness, no acute findings (GINNAGABY) Course - Laboratory Result Diagrams: 02/14/19 12:11 <PABLO AYALA - Last Filed: 02/14/19 14:27> - Laboratory Result Diagrams: 02/14/19 12:11 - Diagnostic Test Radiology reviewed: Reports reviewed - From yesterday's ER visit <GABY CHACKO - Last Filed: 02/14/19 19:39> - Re-evaluation Re-evalutation: 02/14/19 15:08 Patient with chronic lower pelvic pain that she was tired of the symptoms which prompted the visit today. Patient states she is had pain for the past 4 years. Patient with symptoms worrisome for UTI today. Patient without any findings worrisome for PID. Patient denies any concerns about STI, cultures are pending at this time. Patient encouraged to follow-up with draw string knotter for further evaluation of chronic pelvic pain. Patient advised of ultrasound finding of possible uterine fibroids. Patient presents with abdominal pain without signs of peritonitis or other life-threatening or serious etiology. Patient appears stable for discharge and has been instructed to return immediately if the symptoms worsen in any way. (GABY CHACKO) - Vital Signs Vital signs: Temp Pulse Resp BP Pulse Ox 97.4 F 81 19 120/84 100 02/14/19 15:24 02/14/19 15:24 02/14/19 15:24 02/14/19 15:24 02/14/19 15:24 - Laboratory Laboratory results interpreted by me: 02/14/19 02/14/19 12:11 12:16 Calcium 10.7 H Urine Blood MODERATE H Ur Leukocyte Esterase TRACE H 02/14/19 15:07 Labs- Entire Visit 02/14/19 02/14/19 02/14/19 12:11 12:16 13:12 Sodium 144.0 Potassium 4.2 Chloride 106 Carbon Dioxide 27 Anion Gap 11 BUN 10 Creatinine 0.64 Est GFR ( Amer) > 60 Est GFR (MDRD) Non-Af > 60 Glucose 96 Calcium 10.7 H Total Bilirubin 0.3 Direct Bilirubin 0.1 Neonat Total Bilirubin Not Reportable Neonat Direct Bilirubin Not Reportable Neonat Indirect Bili Not Reportable AST 22 ALT 22 Alkaline Phosphatase 73 Total Protein 8.1 Albumin 4.6 Urine Color YELLOW Urine Appearance SLIGHTLY-CLOUDY Urine pH 7.0 Ur Specific [place] 1.025 Urine Protein NEGATIVE Urine Glucose (UA) NEGATIVE Urine Ketones NEGATIVE Urine Blood MODERATE H Urine Nitrite NEGATIVE Urine Bilirubin NEGATIVE Urine Urobilinogen NEGATIVE Ur Leukocyte Esterase TRACE H Urine WBC (Auto) 2 Urine RBC (Auto) 18 Squamous Epi Cells Auto 8 Urine Mucus (Auto) FEW Urine Ascorbic Acid NEGATIVE Urine HCG, Qual NEGATIVE Bacteria (Wet Prep) 3+ BACTERIA SEEN Trichomonas (Wet Prep) NO TRICHOMONAS SEEN Vaginal WBC 2+ WBCS SEEN Vaginal Yeast NO YEAST SEEN Reviewed labs from yesterday as well (GABY CHACKO) Procedures - Pelvic Exam Pelvic exam Cultures obtained: Yes Wet prep obtained: Yes Bimanual exam performed: Yes - No CMT Witnessed by: Manuel GARCIA <PABLO AYALA - Last Filed: 02/14/19 14:27> - Pelvic Exam Pelvic exam Notes: 02/14/19 14:28 Patient external genitalia was unremarkable without edema, erythema, discharge or lesions. Patient tolerated the insertion of the speculum well with minimal discomfort. I was able to visualize the cervix which does appear closed. Patient did have a white liquid vaginal discharge without blood or clots noted. A bimanual exam was performed with no cervical motion tenderness noted. (PABLO AYALA) Discharge <PABLO AYALA - Last Filed: 02/14/19 14:27> <GABY CHACKO - Last Filed: 02/14/19 19:39> - Discharge Clinical Impression: Chronic pelvic pain in female Urinary tract infection Qualifiers: Urinary tract infection type: site unspecified Hematuria presence: with hematuria Qualified Code(s): N39.0 - Urinary tract infection, site not specified Uterine fibroid Qualifiers: Uterine leiomyoma location: unspecified location Qualified Code(s): D25.9 - Leiomyoma of uterus, unspecified Condition: Stable Disposition: HOME, SELF-CARE Instructions: Cephalosporins ([facility]), Pelvic Pain ([facility]), Urinary Tract Infection ([facility]) Additional Instructions: Return immediately for any new or worsening symptoms Followup with your primary care provider, call tomorrow to make a followup appointment Urine culture is pending, we will call if you need any different treatment Follow-up with the draw string knotter for further evaluation, call today for an appointment Prescriptions: Cephalexin Monohydrate [Keflex 500 mg Capsule] 500 mg PO BID 5 Days capsule Naproxen [Naprosyn 250 Nmg Tablet] 1 tab PO BID #14 tablet Forms: Smoking Cessation Education, Return to Work Referrals: [facility] [Provider Group] - Follow up in 3-5 days
[2019-02-14] MEDS ORDERED: CEPHALEXIN 500 MG CAPSULE PO ONE (15:09)
[2019-02-14 15:17] LABS: CHLAM PCR NOT DETECTED (NOT DETECT)
[2019-02-14 15:24] VITALS: BP 120/84
== END 2019-02-14 15:26 | disposition home or self-care (01) ==
LOC: ER 11:30
DX: G89.29 Other chronic pain (principal); R10.2 Pelvic and perineal pain; F17.200 Nicotine dependence, unspecified, uncomplicated
CPT/HCPCS: 36415; 80053; 81001; 81025; 87086; 87210; 87491; 87591; 99284

== ENCOUNTER 2019-03-20 15:03 | Emergency (ER) | payer MEDICAID ==
--- NOTE | 2019-03-20 16:20 | ER Document Report ---
ED Medical Screen (RME) - General Chief Complaint: Weakness Stated Complaint: WEAKNESS Time Seen by Provider: 03/20/19 16:09 Notes: CHIEF COMPLAINT: Fatigue for several months HPI: 29-year-old female presenting to the emergency department complaining of generalized fatigue for several months. No fever. No chest pain. No abdominal pain. No dysuria. No headache. No neck pain. No excessive vaginal bleeding during menstrual cycles. Patient states that she went to her primary care physician several months ago for evaluation of this but "they did not do anything" so now she comes to the emergency department to have this evaluated. Patient does not report excessive caffeine use. She does not report abnormal sleep cycle as far as she is aware. She denies any physical pain at this time ROS: See HPI - all other systems were reviewed and are otherwise negative Constitutional: no fever, + fatigue Eyes: no drainage, no blurred vision ENT: no runny nose, no sore throat Cardiovascular: no chest pain Resp: no SOB, no cough GI: no vomiting, no diarrhea, no abdominal pain : no dysuria Integumentary: no rash Allergy: no hives Musculoskeletal: no extremity pain or swelling Neurological: no numbness/tingling, no weakness MEDICATIONS: I agree with the patient medications as charted by the RN. ALLERGIES: I agree with the allergies as charted by the RN. PAST MEDICAL HISTORY/PAST SURGICAL HISTORY: Reviewed and agree as charted by RN. SOCIAL HISTORY: Reviewed and agree as charted by RN. FAMILY HISTORY: No significant familial comorbid conditions directly related to patient complaint EXAM: Reviewed vital signs as charted by RN. CONSTITUTIONAL: Alert and oriented and responds appropriately to questions. Well-appearing; well-nourished HEAD: Normocephalic; atraumatic EYES:Conjunctivae clear, sclerae non-icteric ENT: normal nose; no rhinorrhea; moist mucous membranes; pharynx without lesions noted NECK: Supple without meningismus; non-tender; no cervical lymphadenopathy, no masses CARD: RRR; no murmurs, no clicks, no rubs, no gallops; symmetric distal pulses RESP: Normal chest excursion without splinting or tachypnea; breath sounds clear and equal bilaterally; no wheezes, no rhonchi, no rales, pulse oximetry 98% on room air not hypoxic ABD/GI: Normal bowel sounds; non-distended; soft, non-tender, no rebound, no guarding; no palpable organomegaly or masses. BACK: The back appears normal and is non-tender to palpation, there is no CVA tenderness EXT: Normal ROM in all joints; non-tender to palpation; no cyanosis, no effusions, no edema SKIN: Normal color for age and race; warm; dry; good turgor; no acute lesions noted NEURO: Moves all extremities equally; Motor and sensory function intact PSYCH: The patient's mood and manner are appropriate. Grooming and personal hygiene are appropriate. On review of the patient record patient has had multiple visits to the emergency department in the last several months and has had lab work drawn on many of these occasions. She has had a normal CBC, CMP and TSH in the past year I have greeted and performed a rapid initial assessment of this patient. A comprehensive ED assessment and evaluation of the patient, analysis of test results and completion of the medical decision making process will be conducted by additional ED providers TRAVEL OUTSIDE OF THE [place] IN LAST 30 DAYS: No - Related Data Allergies/Adverse Reactions: No Known Allergies Allergy (Verified 02/13/19 17:00) Past Medical History - Social History Family history: Reviewed & Not Pertinent - Past Medical History Cardiac Medical History: Denies: Hx Coronary Artery Disease, Hx Heart Attack, Hx Hypertension Pulmonary Medical History: Denies: Hx Asthma, Hx Bronchitis, Hx COPD, Hx Pneumonia Neurological Medical History: Denies: Hx Cerebrovascular Accident, Hx Seizures Renal/ Medical History: Denies: Hx Peritoneal Dialysis Musculoskeltal Medical History: Denies Hx Arthritis, Reports Hx Musculoskeletal Trauma Psychiatric Medical History: Reports: Hx Anxiety, Hx Depression Traumatic Medical History: Reports: Hx Fractures Past Surgical History: Reports: Hx Orthopedic Surgery - right foot - Immunizations Immunizations up to date: Yes Hx Diphtheria, Pertussis, Tetanus Vaccination: Yes - UNSURE WHEN Physical Exam - Vital signs Vitals: Temp Pulse Resp BP Pulse Ox 97.9 F 93 18 138/56 H 98 03/20/19 15:17 03/20/19 15:17 03/20/19 15:17 03/20/19 15:17 03/20/19 15:17 Course - Vital Signs Vital signs: Temp Pulse Resp BP Pulse Ox 97.9 F 93 18 138/56 H 98 03/20/19 15:17 03/20/19 15:17 03/20/19 15:17 03/20/19 15:17 03/20/19 15:17
[2019-03-20 17:01] LABS: ABSOLUTE BASOPHILS # (AUTO) 0.1 10^3/uL (0.0-0.2); ABSOLUTE EOSINOPHILS # (AUTO) 0.2 10^3/uL (0.0-0.6); ABSOLUTE LYMPHOCYTES (AUTO) 2.8 10^3/uL (0.5-4.7); ABSOLUTE MONOCYTES (AUTO) 0.6 10^3/uL (0.1-1.4); ABSOLUTE NEUT (AUTO) 5.6 10^3/uL (1.7-8.2); BASOPHILS % (AUTO) 1.1 % (0-2); EOSINOPHILS % (AUTO) 2.6 % (0-6); HEMATOCRIT 40.5 % (36.0-47.0); HEMOGLOBIN 14.1 g/dL (12.0-15.5); LYMPHOCYTES % (AUTO) 30.2 % (13-45); MEAN CORPUSCULAR HEMOGLOBIN 32.8 pg (27.0-33.4); MEAN CORPUSCULAR HGB CONC 34.7 g/dL (32.0-36.0); MEAN CORPUSCULAR VOLUME 94 fl (80-97); MONOCYTES % (AUTO) 6.8 % (3-13); PLATELET COUNT 281 10^3/uL (150-450); RED BLOOD COUNT 4.29 10^6/uL (3.72-5.28); RED CELL DISTRIBUTION WIDTH 13.3 % (11.5-14.0); SEGMENTED NEUTROPHILS % (AUTO) 59.3 % (42-78); TOTAL CELLS COUNTED % (AUTO) 100 %; WHITE BLOOD COUNT 9.4 10^3/uL (4.0-10.5)
[2019-03-20 17:07] LABS: APPEARANCE,URINE SLIGHTLY-CLOUDY; BILIRUBIN,URINE NEGATIVE (NEGATIVE); COLOR,URINE YELLOW; GLUCOSE, URINE NEGATIVE (NEGATIVE); KETONES,URINE NEGATIVE (NEGATIVE); LEUKOCYTE ESTERASE,URINE MODERATE (NEGATIVE); NITRITE,URINE NEGATIVE (NEGATIVE); PROTEIN,URINE 30 mg/dL (NEGATIVE); URINE SPECIFIC GRAVITY 1.027; UROBILINOGEN,URINE NEGATIVE mg/dL (<2.0)
--- NOTE | 2019-03-20 17:22 | ER Document Report ---
ED General - General Chief Complaint: Weakness Stated Complaint: WEAKNESS Time Seen by Provider: 03/20/19 16:09 Notes: CHIEF COMPLAINT: Fatigue for several months HPI: 29-year-old female presenting to the emergency department complaining of ge neralized fatigue for several months. No fever. No chest pain. No abdominal pain. No dysuria. No headache. No neck pain. No excessive vaginal bleeding during menstrual cycles. Patient states that she went to her primary care physician several months ago for evaluation of this but "they did not do anything" so now she comes to the emergency department to have this evaluated. Patient does not report excessive caffeine use. She does not report abnormal sleep cycle as far as she is aware. She denies any physical pain at this time ROS: See HPI - all other systems were reviewed and are otherwise negative Constitutional: no fever, + fatigue Eyes: no drainage, no blurred vision ENT: no runny nose, no sore throat Cardiovascular: no chest pain Resp: no SOB, no cough GI: no vomiting, no diarrhea, no abdominal pain : no dysuria Integumentary: no rash Allergy: no hives Musculoskeletal: no extremity pain or swelling Neurological: no numbness/tingling, no weakness MEDICATIONS: I agree with the patient medications as charted by the RN. ALLERGIES: I agree with the allergies as charted by the RN. PAST MEDICAL HISTORY/PAST SURGICAL HISTORY: Reviewed and agree as charted by RN. SOCIAL HISTORY: Reviewed and agree as charted by RN. FAMILY HISTORY: No significant familial comorbid conditions directly related to patient complaint EXAM: Reviewed vital signs as charted by RN. CONSTITUTIONAL: Alert and oriented and responds appropriately to questions. Well-appearing; well-nourished HEAD: Normocephalic; atraumatic EYES:Conjunctivae clear, sclerae non-icteric ENT: normal nose; no rhinorrhea; moist mucous membranes; pharynx without lesions noted NECK: Supple without meningismus; non-tender; no cervical lymphadenopathy, no masses CARD: RRR; no murmurs, no clicks, no rubs, no gallops; symmetric distal pulses RESP: Normal chest excursion without splinting or tachypnea; breath sounds clear and equal bilaterally; no wheezes, no rhonchi, no rales, pulse oximetry 98% on room air not hypoxic ABD/GI: Normal bowel sounds; non-distended; soft, non-tender, no rebound, no guarding; no palpable organomegaly or masses. BACK: The back appears normal and is non-tender to palpation, there is no CVA tenderness EXT: Normal ROM in all joints; non-tender to palpation; no cyanosis, no e ffusions, no edema SKIN: Normal color for age and race; warm; dry; good turgor; no acute lesions noted NEURO: Moves all extremities equally; Motor and sensory function intact PSYCH: The patient's mood and manner are appropriate. Grooming and personal hygiene are appropriate. On review of the patient record patient has had multiple visits to the emergency department in the last several months and has had lab work drawn on many of these occasions. She has had a normal CBC, CMP and TSH in the past year TRAVEL OUTSIDE OF THE [place] IN LAST 30 DAYS: No - Related Data Allergies/Adverse Reactions: No Known Allergies Allergy (Verified 02/13/19 17:00) Past Medical History - Social History Smoking Status: Current Every Day Smoker Cigarette use (# per day): Yes Chew tobacco use (# tins/day): No Smoking Education Provided: No Family History: Reviewed & Not Pertinent - Past Medical History Cardiac Medical History: Denies: Hx Coronary Artery Disease, Hx Heart Attack, Hx Hypertension Pulmonary Medical History: Denies: Hx Asthma, Hx Bronchitis, Hx COPD, Hx Pneumonia Neurological Medical History: Denies: Hx Cerebrovascular Accident, Hx Seizures Renal/ Medical History: Denies: Hx Peritoneal Dialysis Musculoskeletal Medical History: Denies Hx Arthritis, Reports Hx Musculoskeletal Trauma Psychiatric Medical History: Reports: Hx Anxiety, Hx Depression Traumatic Medical History: Reports: Hx Fractures Past Surgical History: Reports: Hx Orthopedic Surgery - right foot - Immunizations Immunizations up to date: Yes Hx Diphtheria, Pertussis, Tetanus Vaccination: Yes - UNSURE WHEN Physical Exam - Vital signs Vitals: Temp Pulse Resp BP Pulse Ox 97.9 F 93 18 138/56 H 98 03/20/19 15:17 03/20/19 15:17 03/20/19 15:17 03/20/19 15:17 03/20/19 15:17 Course - Re-evaluation Re-evalutation: 03/20/19 18:03 Patient in no distress watching a movie on her phone. All of her labs are nonactionable at this time. No definitive reason for her complaint of chronic fatigue. Will refer patient back to her primary care provider for reevaluation I did discuss this at length with the patient and she is aware that she needs to follow-up with her PCP for further evaluation of these complaints - Vital Signs Vital signs: Temp Pulse Resp BP Pulse Ox 97.9 F 93 18 138/56 H 98 03/20/19 15:17 03/20/19 15:17 03/20/19 15:17 03/20/19 15:17 03/20/19 15:17 - Laboratory Result Diagrams: 03/20/19 16:42 03/20/19 16:42 Laboratory results interpreted by me: 03/20/19 03/20/19 16:36 16:42 Carbon Dioxide 31 H Calcium 10.5 H Urine Protein 30 H Urine Blood SMALL H Ur Leukocyte Esterase MODERATE H Discharge - Discharge Clinical Impression: Chronic fatigue Condition: Stable Disposition: HOME, SELF-CARE Additional Instructions: Follow-up with your primary care provider listed on your insurance card for further evaluation and management of your chronic fatigue complaint. Your lab work today did not show any acute emergent abnormalities. This is consistent with the multiple prior visits you have had to the emergency department over the last several months where lab work was drawn and also nonactionable. It is important that she follow-up for further evaluation of these complaints with your PCP. Referrals: JONES TORRES DO [NO LOCAL MD] - Follow up as needed
[2019-03-20 17:25] LABS: ANION GAP 8 (5-19); BLOOD UREA NITROGEN 9 mg/dL (7-20); CALCIUM 10.5 mg/dL (8.4-10.2); CARBON DIOXIDE 31 mmol/L (22-30); CHLORIDE 102 mmol/L (98-107); GLUCOSE 97 mg/dL (75-110); POTASSIUM 4.3 mmol/L (3.6-5.0)
[2019-03-20 18:32] VITALS: BP 125/69
== END 2019-03-20 18:30 | disposition home or self-care (01) ==
LOC: ER 15:03
DX: R53.82 Chronic fatigue, unspecified (principal); F17.210 Nicotine dependence, cigarettes, uncomplicated
CPT/HCPCS: 36415; 80048; 81001; 84443; 84703; 85025; 99283

== ENCOUNTER 2019-04-11 12:33 | Emergency (ER) | payer MEDICAID ==
[2019-04-11] MEDS ORDERED: KETOROLAC TROMETHAMINE 60 MG/2 ML SDV IM ONE (14:06)
[2019-04-11] MEDS ORDERED: METHOCARBAMOL 500 MG TABLET PO ONE (14:06)
--- NOTE | 2019-04-11 14:09 | ER Document Report ---
ED Medical Screen (RME) - General Chief Complaint: Vaginal Bleeding Stated Complaint: VAGINAL CLOTS/PAIN Time Seen by Provider: 04/11/19 14:00 TRAVEL OUTSIDE OF THE [place] IN LAST 30 DAYS: No - HPI Notes: 04/11/19 14:08 29-year-old female to the emergency department with complaints of vaginal bleeding that started yesterday with lower pelvic pain. She states that she has been having worsening periods for the past several years. However she saw heavy clots last night in the shower. She states she has never seen clots like that before. She states that she has been taking Tylenol Motrin but has not had any relief of her pain. She denies any fevers. She admits to chills. She admits to some fatigue. She states that she is taking iron. She states the iron start helping. She states she was seen in our department 1 month ago for vaginal bleeding but has not seen a [employer]. She is not on any control. She is a G2, P2. She states that there is not any way she could be . I performed a brief medical screening exam on the patient and determined that she will need further management and evaluation by me inside provider. I placed initial orders to help expedite her care. - Related Data Allergies/Adverse Reactions: No Known Allergies Allergy (Verified 02/13/19 17:00) Past Medical History - Social History Family history: Reviewed & Not Pertinent - Past Medical History Cardiac Medical History: Denies: Hx Coronary Artery Disease, Hx Heart Attack, Hx Hypertension Pulmonary Medical History: Denies: Hx Asthma, Hx Bronchitis, Hx COPD, Hx Pneumonia Neurological Medical History: Denies: Hx Cerebrovascular Accident, Hx Seizures Renal/ Medical History: Denies: Hx Peritoneal Dialysis Musculoskeltal Medical History: Denies Hx Arthritis, Reports Hx Musculoskeletal Trauma Psychiatric Medical History: Reports: Hx Anxiety, Hx Depression Traumatic Medical History: Reports: Hx Fractures Past Surgical History: Reports: Hx Orthopedic Surgery - right foot - Immunizations Immunizations up to date: Yes Hx Diphtheria, Pertussis, Tetanus Vaccination: Yes - UNSURE WHEN
[2019-04-11 14:11] VITALS: BP 115/53
--- NOTE | 2019-04-11 15:25 | RADIOLOGY REPORT (SQ) ---
EXAM DESCRIPTION: U/S NON OB PEL TV W/DOPPLER COMPLETED DATE/TIME: 04/11/2019 3:07 pm REASON FOR STUDY: pelvic pain, vag bleeding COMPARISON: None. TECHNIQUE: Dynamic and static grayscale images acquired of the pelvis via transvaginal approach and recorded on PACS. Additional selected color Doppler and spectral images recorded. LIMITATIONS: None. FINDINGS: UTERUS: The uterus measures 8.4 x 4.8 x 5.5 cm. The echotexture of the myometrium is hete rogeneous. ENDOMETRIAL STRIPE: The endometrium measures 9 mm in thickness. There is an Essure device in place o n the left side of the uterus. CERVIX: No abnormality of the cervix. RIGHT OVARY AND DOPPLER: The right ovary measures 3.3 x 3 x 2.6 cm on on Doppler there is intact gregg rial inflow and venous outflow within the ovarian stroma. There is no adnexal mass. LEFT OVARY AND DOPPLER: The left ovary measures 3 x 2 x 3.4 cm and on Doppler there is intact arteria l inflow within the ovarian stroma. There is no adnexal mass. FREE FLUID: None noted. OTHER: No other finding. IMPRESSION: 1. Mild heterogeneity of the echotexture of the uterus. 2. Essure device in place. 3. No adnexal mass or evidence of ovarian torsion. TECHNICAL DOCUMENTATION: JOB ID: [id number]- All Rights Reserved Rev-07/27 Reading location - IP/workstation name: [email or web address]
[2019-04-11 15:27] LABS: APPEARANCE,URINE CLEAR; BILIRUBIN,URINE NEGATIVE (NEGATIVE); COLOR,URINE YELLOW; GLUCOSE, URINE NEGATIVE (NEGATIVE); KETONES,URINE NEGATIVE (NEGATIVE); LEUKOCYTE ESTERASE,URINE NEGATIVE (NEGATIVE); NITRITE,URINE NEGATIVE (NEGATIVE); PROTEIN,URINE 30 mg/dL (NEGATIVE); URINE SPECIFIC GRAVITY 1.026
[2019-04-11 15:31] LABS: ABSOLUTE EOSINOPHILS # (AUTO) 0.2 10^3/uL (0.0-0.6); ABSOLUTE LYMPHOCYTES (AUTO) 3.2 10^3/uL (0.5-4.7); ABSOLUTE MONOCYTES (AUTO) 0.7 10^3/uL (0.1-1.4); ABSOLUTE NEUT (AUTO) 5.6 10^3/uL (1.7-8.2); BASOPHILS % (AUTO) 0.4 % (0-2); HEMATOCRIT 38.5 % (36.0-47.0); HEMOGLOBIN 13.6 g/dL (12.0-15.5); LYMPHOCYTES % (AUTO) 32.7 % (13-45); MEAN CORPUSCULAR HEMOGLOBIN 33.2 pg (27.0-33.4); MEAN CORPUSCULAR HGB CONC 35.2 g/dL (32.0-36.0); MEAN CORPUSCULAR VOLUME 94 fl (80-97); MONOCYTES % (AUTO) 7.4 % (3-13); PLATELET COUNT 310 10^3/uL (150-450); RED BLOOD COUNT 4.09 10^6/uL (3.72-5.28); RED CELL DISTRIBUTION WIDTH 13.9 % (11.5-14.0); SEGMENTED NEUTROPHILS % (AUTO) 57.5 % (42-78); TOTAL CELLS COUNTED % (AUTO) 100 %; WHITE BLOOD COUNT 9.7 10^3/uL (4.0-10.5)
[2019-04-11 15:50] LABS: ANION GAP 9 (5-19); BLOOD UREA NITROGEN 12 mg/dL (7-20); CALCIUM 10.1 mg/dL (8.4-10.2); CARBON DIOXIDE 28 mmol/L (22-30); CHLORIDE 104 mmol/L (98-107); GLUCOSE 94 mg/dL (75-110)
--- NOTE | 2019-04-11 17:25 | ER Document Report ---
ED GI/ - General Chief Complaint: Vaginal Bleeding Stated Complaint: VAGINAL CLOTS/PAIN Time Seen by Provider: 04/11/19 14:00 Primary Care Provider: [facility] [Provider Group] - Follow up in 3-5 days Notes: Patient is a 29-year-old female who presents emergency department with a chief complaint of vaginal bleeding. Patient states that she has had her bleeding since yesterday and she is passing clots. Patient currently has Essure IUD control. Patient states that over time her periods have gotten worse. She has had her IUD in for the past 5 years. Patient is unsure as to when it supposed to come out. She states that she has been taking Motrin, but has not been taking Tylenol. Patient is currently on ferrous sulfate. TRAVEL OUTSIDE OF THE [place] IN LAST 30 DAYS: No - Related Data Allergies/Adverse Reactions: No Known Allergies Allergy (Verified 02/13/19 17:00) Past Medical History - Social History Smoking Status: Current Some Day Smoker Frequency of alcohol use: Social Drug Abuse: None Family History: Reviewed & Not Pertinent Patient has suicidal ideation: No Patient has homicidal ideation: No - Past Medical History Cardiac Medical History: Denies: Hx Coronary Artery Disease, Hx Heart Attack, Hx Hypertension Pulmonary Medical History: Denies: Hx Asthma, Hx Bronchitis, Hx COPD, Hx Pneumonia Neurological Medical History: Denies: Hx Cerebrovascular Accident, Hx Seizures Renal/ Medical History: Denies: Hx Peritoneal Dialysis Musculoskeletal Medical History: Denies Hx Arthritis, Reports Hx Musculoskeletal Trauma Psychiatric Medical History: Reports: Hx Anxiety, Hx Depression Traumatic Medical History: Reports: Hx Fractures Past Surgical History: Reports: Hx Orthopedic Surgery - right foot - Immunizations Immunizations up to date: Yes Hx Diphtheria, Pertussis, Tetanus Vaccination: Yes - UNSURE WHEN Review of Systems - Review of Systems Notes: REVIEW OF SYSTEMS: CONSTITUTIONAL : Denies recent illness. Denies recent unintentional weight loss. Denies fever, chills, or sweats. EENT: Denies eye, ear, throat, or mouth pain, discharge, or symptoms. Denies nasal or sinus congestion. CARDIOVASCULAR: Denies chest pain. RESPIRATORY: Denies shortness of breath, cough, congestion, difficulty breathing, or wheezing. GASTROINTESTINAL: Denies nausea, vomiting, and diarrhea. Denies constipation. See HPI. GENITOURINARY: Denies difficulty urinating, burning, blood in urine, urgency or frequency. FEMALE GENITOURINARY: See HPI. MUSCULOSKELETAL: Denies neck and back pain. Denies joint pain or swelling. SKIN: Denies rash, itchiness, or lesions HEMATOLOGIC : Denies easy bruising or bleeding. LYMPHATIC: Denies swollen, painful, enlarged glands. NEUROLOGICAL: Denies no numbness or tingling denies weakness. Denies headache. Denies altered mental status. Denies alteration in speech. PSYCHIATRIC: Denies stress, anxiety, alteration in sleep patterns, or depression. All other systems reviewed and negative. Physical Exam - Vital signs Vitals: Temp Pulse Resp BP Pulse Ox 97.6 F 78 16 115/53 L 99 04/11/19 14:00 04/11/19 14:00 04/11/19 14:04/11/19 14:04/11/19 14:00 - Notes Notes: PHYSICAL EXAMINATION: GENERAL: Appears well, healthy, well-nourished, no acute distress. HEAD: Normocephalic, atraumatic. EYES: PERRL, conjunctiva normal, all extraocular movements intact, sclera nonicteric ENT: Moist mucous membranes. NECK: Supple, no noticeable swelling, redness, rash. Normal range of motion. LUNGS: Equal breath sounds bilaterally and clear to auscultation. No wheezes rales or rhonchi. CARDIOVASCULAR: S1-S2, regular rate, regular rhythm. Radial pulses 2+, normal. ABDOMEN: Normoactive bowel sounds. Soft, nontender, no guarding, no rebound tenderness, and no masses palpated. EXTREMITIES: Normal strength and range of motion, no pitting or edema. No cyanosis. NEUROLOGICAL: Moves all extremities upon command. Strength 5/5 in all extremities. PSYCH: Normal mood, normal affect. SKIN: Warm, dry. No rash, lesions, ulcerations noted. Normal skin turgor. 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 Cervical office is closed. No other drainage noted. No foul odor. Course - Re-evaluation Re-evalutation: Pelvic exam done with JONA Goddard at bedside. There was only a small amount of blood noted. Patient's hematology is unremarkable. Chemistries are normal and hCG is negative. Urinalysis shows a moderate amount of blood, consistent with the patient's having increased vaginal bleeding. Transvaginal ultrasound shows that the Essure device is in place on the left side of the uterus. No ovarian torsion noted. No ovarian cyst noted. There is mild heterogenicity echotexture of the uterus. This is most likely due to patient bleeding. Patient will follow-up with her [employer]. I advised her to have them evaluate her IUD, as it has been in place for the past 5 years. She is in agreement with this plan. Follow-up precautions were given. Verbal discharge instructions were given to the patient. They verbalized understanding. They are stable for discharge. - Vital Signs Vital signs: Temp Pulse Resp BP Pulse Ox 97.6 F 78 16 115/53 L 99 04/11/19 14:00 04/11/19 14:00 04/11/19 14:00 04/11/19 14:00 04/11/19 14:00 - Laboratory Result Diagrams: 04/11/19 14:58 04/11/19 14:58 Laboratory results interpreted by me: 04/11/19 14:56 Urine Protein 30 H Urine Blood MODERATE H Urine Urobilinogen 2.0 H Discharge - Discharge Clinical Impression: Vaginal bleeding, Lower abdominal pain Condition: Stable Disposition: HOME, SELF-CARE Instructions: Abdominal Pain ([facility]) Additional Instructions: You were seen today in the emergency department for vaginal bleeding. Please follow[facility]up with [facility] in regards to this visit. You may need to have your IUD replaced. Please add Tylenol to your pain regimen. You can take 1000 mg every 6 hours. If you take Tylenol with codeine, please do not take the regular Tylenol. Your prescription is at the pharmacy. Prescriptions: Acetaminophen with Codeine [Tylenol #3 Tablet] 1 each PO Q6HP PRN #12 tablet PRN Reason: Forms: Return to Work Referrals: [facility] [Provider Group] - Follow up in 3-5 days
== END 2019-04-11 17:48 | disposition home or self-care (01) ==
LOC: ER 12:33
DX: N93.9 Abnormal uterine and vaginal bleeding, unspecified (principal); R10.30 Lower abdominal pain, unspecified; F17.200 Nicotine dependence, unspecified, uncomplicated; Z97.5 Presence of (intrauterine) contraceptive device; Z79.899 Other long term (current) drug therapy
CPT/HCPCS: 99284; 96372; 36415; 84703; 85025; 80048; 81001; 76830; 93976; J1885; J3490

== ENCOUNTER 2019-10-07 15:48 | Emergency (ER) | payer MEDICAID ==
[2019-10-07 18:27] VITALS: BP 112/63
[2019-10-07] MEDS ORDERED: KETOROLAC TROMETHAMINE INJ/PF 30 MG/1 ML SDV IV ONE (18:59)
[2019-10-07] MEDS ORDERED: DIPHENHYDRAMINE HCL 50 MG/ML VIAL IV ONE (18:59)
[2019-10-07] MEDS ORDERED: ONDANSETRON HCL INJ/PF 4 MG/2 ML SDV IV ONE (18:59)
[2019-10-07] MEDS ORDERED: NORMAL SALINE 1000 ML 1,000 ML IV ONE (18:59)
--- NOTE | 2019-10-07 19:01 | ER Document Report ---
ED Medical Screen (RME) - General Chief Complaint: Shortness Of Breath Stated Complaint: HEADACHE/SHORTNESS OF BREATH Time Seen by Provider: 10/07/19 18:54 TRAVEL OUTSIDE OF THE [place] IN LAST 30 DAYS: No - HPI Notes: 10/07/19 19:49 29-year-old female presents emergency room with a headache for the last 2 days and shortness of breath that started yesterday. Patient states the headache is frontal, denies any blurred vision double vision loss of vision. Denies any prior history of migraines or headaches. Tried Tylenol without full relief. Reports pain is 4 out of 5. Patient states she does have E sure for control, last menstrual cycle was September 11, 2019. Denies any new medication foods or travel. Denies any recent surgeries, periods of immobilization, any clotting disorders. Patient states she feels shortness of breath while just sitting and lying around. Denies any chest pain I have greeted and performed a rapid initial assessment of this patient. A comprehensive ED assessment and evaluation of the patient, analysis of test results and completion of the medical decision making process will be conducted by additional ED providers. PHYSICAL EXAMINATION: GENERAL: Well-appearing, well-nourished and in no acute distress. HEAD: Atraumatic, normocephalic. EYES: Pupils equal round extraocular movements intact, conjunctiva are normal. NECK: Normal range of motion CV: s1, s2 regular LUNGS: No respiratory distress - Related Data Allergies/Adverse Reactions: No Known Allergies Allergy (Verified 02/13/19 17:00) Past Medical History - Social History Family history: Reviewed & Not Pertinent - Past Medical History Cardiac Medical History: Denies: Hx Coronary Artery Disease, Hx Heart Attack, Hx Hypertension Pulmonary Medical History: Denies: Hx Asthma, Hx Bronchitis, Hx COPD, Hx Pneumonia Neurological Medical History: Denies: Hx Cerebrovascular Accident, Hx Seizures Renal/ Medical History: Denies: Hx Peritoneal Dialysis Musculoskeltal Medical History: Denies Hx Arthritis, Reports Hx Musculoskeletal Trauma Psychiatric Medical History: Reports: Hx Anxiety, Hx Depression Traumatic Medical History: Reports: Hx Fractures Past Surgical History: Reports: Hx Orthopedic Surgery - right foot - Immunizations Immunizations up to date: Yes Hx Diphtheria, Pertussis, Tetanus Vaccination: Yes - UNSURE WHEN Physical Exam - Vital signs Vitals: Temp Pulse Resp BP Pulse Ox 98.8 F 65 20 112/63 99 10/07/19 18:26 10/07/19 18:26 10/07/19 18:26 10/07/19 18:26 10/07/19 18:26 Course - Vital Signs Vital signs: Temp Pulse Resp BP Pulse Ox 98.8 F 65 20 112/63 99 10/07/19 18:26 10/07/19 18:26 10/07/19 18:26 10/07/19 18:26 10/07/19 18:26
== END 2019-10-07 23:14 | disposition left against medical advice (07) ==
LOC: ER 15:48
DX: Z53.20 Procedure and treatment not carried out because of patient's decision for unspecified reasons (principal); R06.02 Shortness of breath; R51 Headache
CPT/HCPCS: 99281

== ENCOUNTER 2019-10-12 10:21 | Emergency (ER) | payer MEDICAID ==
--- NOTE | 2019-10-12 12:07 | RADIOLOGY REPORT (SQ) ---
EXAM DESCRIPTION: CHEST SINGLE VIEW IMAGES COMPLETED DATE/TIME: 10/12/2019 11:54 am REASON FOR STUDY: shortness of breath COMPARISON: 06/16/2014. EXAM PARAMETERS: NUMBER OF VIEWS: One view. TECHNIQUE: Single frontal radiographic view of the chest acquired. RADIATION DOSE: NA LIMITATIONS: None. FINDINGS: LUNGS AND PLEURA: No opacities, masses or pneumothorax. No pleural effusion. MEDIASTINUM AND HILAR STRUCTURES: No masses. Contour normal. HEART AND VASCULAR STRUCTURES: Heart normal in size. Normal vasculature. BONES: No acute findings. HARDWARE: None in the chest. OTHER: No other significant finding. IMPRESSION: NO ACUTE RADIOGRAPHIC FINDING IN THE CHEST. TECHNICAL DOCUMENTATION: JOB ID: [id number] [employer]- All Rights Reserved Reading location - IP/workstation name: [email or web address]
--- NOTE | 2019-10-12 12:27 | EKG REPORT ---
SEVERITY:- NORMAL ECG - SINUS RHYTHM : Confirmed by: Deysi Li MD 12-Oct-2019 12:27:01
--- NOTE | 2019-10-12 13:33 | ER Document Report ---
Entered by KARRIE BARRON SCRIBE 10/12/19 1322 Acting as scribe for:YESSICA PAN MD ED Respiratory Problem - General Chief Complaint: Shortness Of Breath Stated Complaint: DIFFICULTY BREATHING Time Seen by Provider: 10/12/19 13:00 Mode of Arrival: Ambulatory Information source: Patient Notes: This 29 year old female patient presents to the emergency department today with complaints of shortness of breath for x1 week. Patient reports that she was making breakfast this morning and she could not catch her breath. Patient describes this as "gasping for air". Patient also states that she lives in the top story of her apartment and she normally can walk up the stairs without a problem but she has been short of breath when doing it recently. TRAVEL OUTSIDE OF THE [place] 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: Family Family History: Reviewed & Not Pertinent Patient has homicidal ideation: No Musculoskeletal Medical History: Reports Hx Musculoskeletal Trauma Psychiatric Medical History: Reports: Hx Anxiety, Hx Depression Traumatic Medical History: Reports: Hx Fractures Past Surgical History: Reports: Hx Orthopedic Surgery - right foot x2 - Immunizations Immunizations up to date: Yes Hx Diphtheria, Pertussis, Tetanus Vaccination: Yes - UNSURE WHEN Review of Systems - Review of Systems Constitutional: No symptoms reported EENT: No symptoms reported Cardiovascular: No symptoms reported Respiratory: See HPI, Short of breath. denies: Cough Gastrointestinal: No symptoms reported Genitourinary: No symptoms reported Female Genitourinary: No symptoms reported Musculoskeletal: No symptoms reported Skin: No symptoms reported Hematologic/Lymphatic: No symptoms reported Neurological/Psychological: No symptoms reported -: Yes All other systems reviewed and negative Physical Exam - Vital signs Vitals: Temp Pulse Resp BP Pulse Ox 98.2 F 92 16 103/44 L 100 10/12/19 10:29 10/12/19 10:29 10/12/19 10:29 10/12/19 10:29 10/12/19 10:29 - Notes Notes: Physical Exam: General: Alert, appears well. HEENT: Normocephalic. Atraumatic. PERRL. Extraocular movements intact. Oropharynx clear. Neck: Supple. Non-tender. Respiratory: No respiratory distress. Clear and equal breath sounds bilaterally. Cardiovascular: Regular rate and rhythm. Abdominal: Morbidly obese. No distension. Normal Bowel Sounds. Back: No gross abnormalities. Extremities: Moves all four extremities. Upper extremities: Normal inspection. Normal ROM. Lower extremities: Normal inspection. No edema. Normal ROM. Neurological: Normal cognition. AAOx4. Normal speech. Psychological: Normal affect. Normal Mood. Skin: Warm. Dry. Normal color. Course - Re-evaluation Re-evalutation: 10/12/19 15:17 The patient's chest x-ray is normal. EKG is normal with a heart rate of 64. Patient's room air pulse oximetry reading was 100%. The d-dimer was negative. The patient's shortness of breath pattern suggest an anxiety problem, and the dyspnea on exertion may be due to her morbid obesity and poor exercise tolerance. 10/12/19 15:32 I did discuss all the negative findings, and the possibility this could all be due to anxiety. At that point the patient tells me she used to be on pills for anxiety. Advised her to follow-up with her primary care provider if this continues to be a problem. - Vital Signs Vital signs: Temp Pulse Resp BP Pulse Ox 98.2 F 92 16 103/44 L 100 10/12/19 10:30 10/12/19 10:29 10/12/19 10:29 10/12/19 10:29 10/12/19 10:29 - Laboratory Result Diagrams: 10/12/19 14:25 10/12/19 14:25 Laboratory results interpreted by me: 10/12/19 14:25 Calcium 10.6 H - Diagnostic Test Radiology reviewed: Image reviewed, Reports reviewed - Chest x-ray does not show radiographic abnormalities. - EKG Interpretation by Pa EKG shows normal: Sinus rhythm, [place], Intervals, QRS Complexes, ST-T Waves Rate: Normal - 64 Rhythm: NSR Discharge - Discharge Clinical Impression: Shortness of breath Condition: Stable Disposition: HOME, SELF-CARE Additional Instructions: Dyspnea, Nonspecific You were evaluated for shortness of breath, or dyspnea. Dyspnea has many causes, and some are more serious than others. Sometimes it's impossible to diagnose the cause of dyspnea with the tests that are available on an emergency basis. Based on our evaluation today, you do not need hospitalization now. We found no evidence of pneumonia, collapsed lung, blood clots in the lung, tumors, or heart failure. Causes of non-specific dyspnea can include asthma or bronchospasm, hyperventilation, emotional distress, heart disease, emphysema, fibrosis of the lung, and stiffness of the chest wall. In healthy individuals with a single episode, it's sometimes reasonable to do nothing but wait to see if the problem occurs again. Additional tests used to evaluate dyspnea can include cardiac stress testing, echocardiography, pulmonary function testing, CAT scan of the chest, bronchoscopy or pulmonary biopsy. Return if shortness of breath persists or worsens, or if you develop chest pain, fever, cough, confusion, or fainting. No explanation for your shortness of breath was found today. Your chest x-ray is normal. Your EKG was normal. Your lab work was normal. A test that looks for blood clotting was negative. Frequently the symptoms of shortness of breath that you describe which can occur at rest or with activity, may be due to anxiety. You will need to follow-up with your primary care provider for further nelson luation of your shortness of breath if it does not get better. RETURN TO THE EMERGENCY ROOM IF ANY NEW OR WORSENING SYMPTOMS. I personally performed the services described in the documentation, reviewed and edited the documentation which was dictated to the scribe in my presence, and it accurately records my words and actions.
[2019-10-12 14:47] LABS: ABSOLUTE BASOPHILS # (AUTO) 0.1 10^3/uL (0.0-0.2); ABSOLUTE EOSINOPHILS # (AUTO) 0.1 10^3/uL (0.0-0.6); ABSOLUTE LYMPHOCYTES (AUTO) 3.1 10^3/uL (0.5-4.7); ABSOLUTE MONOCYTES (AUTO) 0.7 10^3/uL (0.1-1.4); ABSOLUTE NEUT (AUTO) 6.1 10^3/uL (1.7-8.2); BASOPHILS % (AUTO) 0.8 % (0-2); EOSINOPHILS % (AUTO) 1.4 % (0-6); HEMOGLOBIN 14.2 g/dL (12.0-15.5); LYMPHOCYTES % (AUTO) 30.3 % (13-45); MEAN CORPUSCULAR HGB CONC 35.4 g/dL (32.0-36.0); MEAN CORPUSCULAR VOLUME 94 fl (80-97); MONOCYTES % (AUTO) 6.6 % (3-13); PLATELET COUNT 272 10^3/uL (150-450); RED BLOOD COUNT 4.28 10^6/uL (3.72-5.28); RED CELL DISTRIBUTION WIDTH 12.8 % (11.5-14.0); SEGMENTED NEUTROPHILS % (AUTO) 60.9 % (42-78); TOTAL CELLS COUNTED % (AUTO) 100 %; WHITE BLOOD COUNT 10.1 10^3/uL (4.0-10.5)
[2019-10-12 15:05] LABS: ALBUMIN 4.6 g/dL (3.5-5.0); ALKALINE PHOSPHATASE 71 U/L (38-126); ANION GAP 6 (5-19); ASPARTATE AMINO TRANSFERASE 26 U/L (14-36); BILIRUBIN,DIRECT 0.1 mg/dL (0.0-0.4); BILIRUBIN,TOTAL 0.7 mg/dL (0.2-1.3); BLOOD UREA NITROGEN 10 mg/dL (7-20); CALCIUM 10.6 mg/dL (8.4-10.2); CARBON DIOXIDE 28 mmol/L (22-30); CHLORIDE 105 mmol/L (98-107); GLUCOSE 96 mg/dL (75-110); POTASSIUM 4.3 mmol/L (3.6-5.0); TOTAL PROTEIN 7.6 g/dL (6.3-8.2)
[2019-10-12 16:19] VITALS: BP 110/55
== END 2019-10-12 16:16 | disposition home or self-care (01) ==
LOC: ER 10:21
DX: R06.02 Shortness of breath (principal); F17.210 Nicotine dependence, cigarettes, uncomplicated; E66.01 Morbid (severe) obesity due to excess calories
CPT/HCPCS: 36415; 71045; 80053; 85025; 85379; 93005; 93010; 99285